=== PATIENT | male | born 1950 | race American Indian/Alaskan Native ===

== ENCOUNTER 2017-06-04 07:28 | Inpatient (IN) | payer MEDICARE, MEDICAID ==
[2017-05-31 17:20] VITALS: BMI 30.5
[2017-06-04] MEDS ORDERED: Promethazine/Cod 6.25mg-10mg/5ml Syr UD PO PRN (11:36)
[2017-06-04] MEDS: Oxycodone/Acetaminophen 5/325 mg Tab PO PRN (14:27)
[2017-06-04] MEDS: Ammonium Lactate 12% Lotion (225 g) TOP SCH ×3 (14:28→22:19)
--- NOTE | 2017-06-04 14:33 | CP.PCM.CON ---
History of Present Illness - History of Present Illness History of Present Illness: 67 y/o AA man transferred for cervical stenosis surgery. Cervical spine disease severe and neuro surgery recommended. Has refused surgery for about 2 years HAD SYNCOPIZED 2 X PRIOR TO ADMISSION TO [facility] Last dialysis 06/03 PMH: ESRD- ON DIALYSIS 8-9 YEARS HTN HTN RENAL DISEASE ATRIAL ARRYTHMIAS SEC HYPERPARATHYROIDISM PSH: AV FISTULA PPM Review of Systems - Constitutional Constitutional: Fatigue, Lethargy, Weakness - EENT Eyes: absent: As Per HPI, Blind Spots, Blurred Vision, Change in Vision, Decreased Night Vision, Diplopia, Discharge, Dry Eye, Exophthalmos, Floaters, Irritation, Itchy Eyes, Loss of Peripheral Vision, Pain, Photophobia, Requires Corrective Lenses, Sees Flashes, Spots in Vision, Tunnel Vision, Other Visual Disturbances, Loss of Vision, Other Ears: absent: As Per HPI, Decreased Hearing, Ear Discharge, Ear Pain, Tinnitus, Abnormal Hearing, Disequilibrium, Dizziness, Other Nose/Mouth/Throat: absent: As Per HPI, Epistaxis, Nasal Congestion, Nasal Discharge, Nasal Obstruction, Nasal Trauma, Nose Pain, Post Nasal Drip, Sinus Pain, Sinus Pressure, Bleeding Gums, Change in Voice, Dental Pain, Dry Mouth, Dysphagia, Halitosis, Hoarsness, Lip Swelling, Mouth Lesions, Mouth Pain, Odynophagia, Sore Throat, Throat Swelling, Tongue Swelling, Facial Pain, Neck Pain, Neck Mass, Other - Cardiovascular Cardiovascular: Dyspnea on Exertion, Leg Edema, Lightheadedness - Respiratory Respiratory: Cough, Dyspnea on Exertion - Gastrointestinal Gastrointestinal: absent: As Per HPI, Abdominal Pain, Belching, Bloating, Change in Bowel Habits, Change in Stool Character, Coffee Ground Emesis, Constipation, Cramping, Diarrhea, Dyspepsia, Dysphagia, Early Satiety, Excessive Flatus, Fecal Incontinence, Heartburn, Hematemesis, Hematochezia, Loose Stools, Melena, Nausea, Odynophagia, Temesmus, Vomiting, Other - Genitourinary Genitourinary: As Per HPI - Musculoskeletal Musculoskeletal: Abnormal Gait, Muscle Weakness, Myalgias, Radiating Pain into Limb - Integumentary Integumentary: Dry Skin - Neurological Neurological: Sensory Deficit, Weakness Past Patient History - Infectious Disease Hx of Infectious Diseases: None - Past Medical History & Family History Past Medical History?: Yes Past Family History: Reviewed and not pertinent - Past Social History Smoking Status: Former Smoker Chewing Tobacco Use: No Cigar Use: No Alcohol: None 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 - NEUROLOGICAL Hx Neurological Disorder: Yes Hx Syncope: Yes Other/Comment: COMATOSE 1 MONTH 2008 DUE TO RENAL FAILURE - HEENT Hx HEENT Problems: No - RENAL Hx Chronic Kidney Disease: Yes Hx Dialysis: Yes - ENDOCRINE/METABOLIC Hx Endocrine Disorders: No - HEMATOLOGICAL/ONCOLOGICAL Hx Blood Disorders: Yes Hx AIDS: No Hx Anemia: Yes Hx Human Immunodeficiency Virus (HIV): No - INTEGUMENTARY Hx Dermatological Problems: Yes Other/Comment: CHRONIC PRURITUS - MUSCULOSKELETAL/RHEUMATOLOGICAL Hx Musculoskeletal Disorders: No Hx Falls: Yes - GASTROINTESTINAL Hx Gastrointestinal Disorders: Yes Other/Comment: ABD HERNIA HISTORY FEEDING TUBE INSERTION AND REMOVAL - GENITOURINARY/GYNECOLOGICAL Hx Genitourinary Disorders: No - PSYCHIATRIC Hx Psychophysiologic Disorder: No Hx Substance Use: No - SURGICAL HISTORY Hx Surgeries: Yes Hx Tonsillectomy: Yes Hx Vascular Access Device: Yes - ANESTHESIA Hx Anesthesia: Yes Hx Anesthesia Reactions: No Hx Malignant Hyperthermia: No Meds Allergies/Adverse Reactions: Allergies Allergy/AdvReac Type Severity Reaction Status Date / Time олег inhibitors Allergy Mild ANAPHYLAXIS Uncoded 05/31/17 17:22 - Medications Medications: Current Medications Albuterol/Ipratropium (Duoneb 3 Mg/0.5 Mg (3 Ml) Ud) 3 ml INH RQ6 PRN PRN Reason: Shortness of Breath Amiodarone HCl (Cordarone) 100 mg PO DAILY [facility] Last Admin: 06/04/17 12:28 Dose: 100 mg Amlodipine Besylate (Norvasc) 5 mg PO DAILY [facility] Epoetin Leroy (Procrit) 4,000 unit SC TTS [facility] Heparin Sodium (Porcine) (Heparin) 5,000 units SC Q12 [facility] Lactic Acid (Lac-Hydrin 12% Lotion (225 G)) 1 gm TOP QID [facility] Last Admin: 06/04/17 14:28 Dose: 1 applic Losartan Potassium (Cozaar) 50 mg PO DAILY [facility] Last Admin: 06/04/17 12:28 Dose: 50 mg Oxycodone/Acetaminophen (Percocet 5/325 Mg Tab) 1 tab PO Q6H PRN PRN Reason: Pain, moderate (4-7) Stop: 06/07/17 14:16 Last Admin: 06/04/17 14:27 Dose: 1 tab Promethazine HCl/Codeine (Phenergan/Codeine Oral Syrup) 5 ml PO Q6 PRN PRN Reason: Cough Sevelamer Carbonate (Renvela) 2,400 mg PO TID [facility] Last Admin: 06/04/17 14:28 Dose: 2,400 mg Tramadol HCl (Ultram) 50 mg PO Q6 PRN PRN Reason: Pain, moderate (4-7) Vancomycin HCl (Vancocin (Oral Or Rectal Use)) 500 mg PO TTS [facility] Vitamin B Complex/Vit C/Folic Acid (Nephro-Macho) 1 tab PO DAILY [facility] Physical Exam - Constitutional Appears: Confused, Chronically Ill - Head Exam Head Exam: ATRAUMATIC, NORMAL INSPECTION - Eye Exam Eye Exam: EOMI, Normal appearance - Neck Exam Neck exam: Positive for: Normal Inspection, Tenderness - Respiratory Exam Respiratory Exam: Clear to Auscultation Bilateral, NORMAL BREATHING PATTERN - Cardiovascular Exam Cardiovascular Exam: REGULAR RHYTHM, +S1 - GI/Abdominal Exam GI & Abdominal Exam: Soft. absent: Tenderness - Extremities Exam Extremities exam: Positive for: pedal edema, tenderness - Neurological Exam Neurological exam: Alert, Motor Sensory Deficit - Psychiatric Exam Psychiatric exam: Depressed, Flat Affect - Skin Skin Exam: Dry, Warm Results - Vital Signs Recent Vital Signs: Last Vital Signs Temp 97.6 F 06/04/17 08:15 Pulse 60 06/04/17 08:15 Resp 20 06/04/17 08:15 BP 131/66 06/04/17 08:15 Pulse Ox 94 L 06/04/17 08:15 Assessment & Plan (1) Cervical myelopathy Status: Acute (2) ESRD (end stage renal disease) Status: Acute (3) Hypertensive chronic kidney disease with stage 5 chronic kidney disease or end stage renal disease Status: Acute - Assessment and Plan (Free Text) Plan: Check labs Dialysis TTS Neurosurgery evaluation and treament
[2017-06-04] MEDS: Albuterol-Ipratrop 3 mg / 0.5 (3 ml) UD INH PRN (18:28)
--- NOTE | 2017-06-05 00:47 | CP.PCM.HP ---
History of Present Illness - History of Present Illness History of Present Illness: Chief complaint: Numbness and weakness of the hand and the legs History present illness: 67-year-old male with history of end-stage renal disease on dialysis, diabetes, hypertension on dialysis for more than 10 years was transferred from [facility] for management of and surgical intervention of the cervical neck disease. Patient went to the [facility] following a fall, and had injury to the neck at the time. Patient claims that 9 months ago he was hospitalized, and since then he is not doing well. He was in the rehabilitation, and slowly his walking capacity is reduced. He is mostly sitting up in the chair. He was able to use his hands before, after the recent hospitalization at [place] , he started having less movement in the upper and the lower extremities. He also admitted at the time with coughing, shortness of breath, and the suspected aspiration pneumonia and the placed on antibiotic. The PMD called me, from [facility], and he was diagnosed with the impending cord compression, and the patient needed surgical intervention, but patient only wanted to have the surgery at [facility]. 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 Patient was transferred for that reason. Patient is sitting up in the chair, compatible otherwise. He is having numbness and tingling in the hands, He is able to use the right hand but not like before. Patient was seen by neurosurgical team, and was told that a shunt is at high risk for surgical intervention. Past medical history as noted above Allergy: No known drug allergy except DOMNIIQUE inhibitor was, patient claims that it cost itching and rash and shortness of breath Surgical intervention: Pacemaker, AV shunt. Abdominal surgery Patient denies any smoking, no alcohol. Patient is living by himself. Currently from correction Review of system: Currently having no headache, minimal cough noted, no abdominal pain, having BMs regularly. Patient is able to lift the legs both sides. He is also able to move the upper extremities. He is feeling much better than before. Still having some neck pain Vital signs reviewed No neck vein distention noted, deformity of the neck noted flexion contracture present Chest good air entry bilaterally, no wheezing or rales noted CVS regular heart sound, no murmur noted Abdomen soft, nontender. 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 Reduced reflexes in the upper extremities. Weakness of the upper extend to noted and also contractures noted Labs reviewed CT of the neck reviewed Assessment and recommendation: 67-year-old male with multiple medical history including end-stage renal disease on dialysis diabetes hypertension hypercholesterolemia, possible heart disease, pacemaker. Patient is currently having multiple cervical [place] disease associated with the spondylosis, and a causing possible compression. Patient is at high risk. He himself is afraid of the surgery at this time. We will get the cardiology evaluation. We'll speak to the surgery. 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 - NEUROLOGICAL Hx Neurological Disorder: Yes Hx Syncope: Yes Other/Comment: COMATOSE 1 MONTH 2008 DUE TO RENAL FAILURE - HEENT Hx HEENT Problems: No - RENAL Hx Chronic Kidney Disease: Yes Hx Dialysis: Yes - ENDOCRINE/METABOLIC Hx Endocrine Disorders: No - HEMATOLOGICAL/ONCOLOGICAL Hx Blood Disorders: Yes Hx AIDS: No Hx Anemia: Yes Hx Human Immunodeficiency Virus (HIV): No - INTEGUMENTARY Hx Dermatological Problems: Yes Other/Comment: CHRONIC PRURITUS - MUSCULOSKELETAL/RHEUMATOLOGICAL Hx Musculoskeletal Disorders: No Hx Falls: Yes - GASTROINTESTINAL Hx Gastrointestinal Disorders: Yes Other/Comment: ABD HERNIA HISTORY FEEDING TUBE INSERTION AND REMOVAL - GENITOURINARY/GYNECOLOGICAL Hx Genitourinary Disorders: No - PSYCHIATRIC Hx Psychophysiologic Disorder: No Hx Substance Use: No - SURGICAL HISTORY Hx Surgeries: Yes Hx Tonsillectomy: Yes Hx Vascular Access Device: Yes - ANESTHESIA Hx Anesthesia: Yes Hx Anesthesia Reactions: No Hx Malignant Hyperthermia: No Meds Allergies/Adverse Reactions: Allergies Allergy/AdvReac Type Severity Reaction Status Date / Time dominique inhibitors Allergy Mild ANAPHYLAXIS Uncoded 05/31/17 17:22 Results - Vital Signs Recent Vital Signs: Last Vital Signs Temp 97 F L 06/04/17 15:05 Pulse 98 H 06/04/17 18:32 Resp 20 06/04/17 15:05 BP 123/77 06/04/17 15:05 Pulse Ox 95 06/04/17 15:05 - Labs Result Diagrams: 06/05/17 10:33 06/05/17 10:07
[2017-06-05] MEDS: Oxycodone/Acetaminophen 5/325 mg Tab PO PRN ×3 (01:18→18:20)
[2017-06-05] MEDS: Albuterol-Ipratrop 3 mg / 0.5 (3 ml) UD INH PRN ×2 (01:32→18:50)
--- NOTE | 2017-06-05 08:26 | CP.PCM.PN ---
Subjective - Date & Time of Evaluation Date of Evaluation: 06/05/17 Time of Evaluation: 08:24 - Subjective Subjective: full consult dictatted by 3 days ago while at [facility] referance that He is extremly high risk for this surgery, high probability of either not surviving or quadraplegica will await med clearance and discuss again with pt if med cleared Objective - Vital Signs/Intake and Output Vital Signs (last 24 hours): Temp Pulse Resp BP Pulse Ox 98.5 F 61 20 96/59 L 96 06/04/17 23:00 06/05/17 00:00 06/04/17 23:00 06/04/17 23:00 06/04/17 23:00 Intake and Output: 06/05/17 06/05/17 06:59 18:59 Intake Total 20 Balance 20 - Medications Medications: Current Medications Albuterol/Ipratropium (Duoneb 3 Mg/0.5 Mg (3 Ml) Ud) 3 ml INH RQ6 PRN PRN Reason: Shortness of Breath Last Admin: 06/05/17 01:32 Dose: 3 ml Amiodarone HCl (Cordarone) 100 mg PO DAILY [facility] Last Admin: 06/04/17 12:28 Dose: 100 mg Amlodipine Besylate (Norvasc) 5 mg PO DAILY [facility] Epoetin Leroy (Procrit) 4,000 unit SC TTS [facility] Heparin Sodium (Porcine) (Heparin) 5,000 units SC Q12 [facility] Last Admin: 06/04/17 22:23 Dose: Not Given Lactic Acid (Lac-Hydrin 12% Lotion (225 G)) 1 gm TOP QID [facility] Last Admin: 06/04/17 22:19 Dose: Not Given Losartan Potassium (Cozaar) 50 mg PO DAILY [facility] Last Admin: 06/04/17 12:28 Dose: 50 mg Oxycodone/Acetaminophen (Percocet 5/325 Mg Tab) 1 tab PO Q6H PRN PRN Reason: Pain, moderate (4-7) Stop: 06/07/17 14:16 Last Admin: 06/05/17 01:18 Dose: 1 tab Promethazine HCl/Codeine (Phenergan/Codeine Oral Syrup) 5 ml PO Q6 PRN PRN Reason: Cough Sevelamer Carbonate (Renvela) 2,400 mg PO TID [facility] Last Admin: 06/04/17 18:00 Dose: Not Given Tramadol HCl (Ultram) 50 mg PO Q6 PRN PRN Reason: Pain, moderate (4-7) Vancomycin HCl (Vancocin (Oral Or Rectal Use)) 500 mg PO TTS [facility] Vitamin B Complex/Vit C/Folic Acid (Nephro-Macho) 1 tab PO DAILY [facility]
--- NOTE | 2017-06-05 09:49 | CP.PCM.PN ---
Subjective - Date & Time of Evaluation Date of Evaluation: 06/05/17 Time of Evaluation: 09:46 - Subjective Subjective: For dialysis now- UF 2000ml Labs requested Reviewed neurosurgery note Will discuss with medicine Resume previous meds Objective - Vital Signs/Intake and Output Vital Signs (last 24 hours): Temp Pulse Resp BP Pulse Ox 97.7 F 69 20 99/58 L 98 06/05/17 07:53 06/05/17 07:53 06/05/17 07:53 06/05/17 07:53 06/05/17 07:53 Intake and Output: 06/05/17 06/05/17 06:59 18:59 Intake Total 20 Balance 20 - Medications Medications: Current Medications Albuterol/Ipratropium (Duoneb 3 Mg/0.5 Mg (3 Ml) Ud) 3 ml INH RQ6 PRN PRN Reason: Shortness of Breath Last Admin: 06/05/17 01:32 Dose: 3 ml Amiodarone HCl (Cordarone) 100 mg PO DAILY [facility] Last Admin: 06/04/17 12:28 Dose: 100 mg Amlodipine Besylate (Norvasc) 5 mg PO DAILY [facility] Epoetin Leroy (Procrit) 4,000 unit SC TTS [facility] Heparin Sodium (Porcine) (Heparin) 5,000 units SC Q12 [facility] Last Admin: 06/04/17 22:23 Dose: Not Given Lactic Acid (Lac-Hydrin 12% Lotion (225 G)) 1 gm TOP QID [facility] Last Admin: 06/04/17 22:19 Dose: Not Given Losartan Potassium (Cozaar) 50 mg PO DAILY [facility] Last Admin: 06/04/17 12:28 Dose: 50 mg Oxycodone/Acetaminophen (Percocet 5/325 Mg Tab) 1 tab PO Q6H PRN PRN Reason: Pain, moderate (4-7) Stop: 06/07/17 14:16 Last Admin: 06/05/17 01:18 Dose: 1 tab Promethazine HCl/Codeine (Phenergan/Codeine Oral Syrup) 5 ml PO Q6 PRN PRN Reason: Cough Sevelamer Carbonate (Renvela) 2,400 mg PO TID [facility] Last Admin: 06/04/17 18:00 Dose: Not Given Tramadol HCl (Ultram) 50 mg PO Q6 PRN PRN Reason: Pain, moderate (4-7) Vancomycin HCl (Vancocin (Oral Or Rectal Use)) 500 mg PO TTS [facility] Vitamin B Complex/Vit C/Folic Acid (Nephro-Macho) 1 tab PO DAILY [facility] - Constitutional Appears: No Acute Distress, Chronically Ill - Head Exam Head Exam: ATRAUMATIC, NORMAL INSPECTION - Eye Exam Eye Exam: EOMI, Normal appearance - Neck Exam Neck Exam: Normal Inspection, Tenderness - Respiratory Exam Respiratory Exam: Clear to Ausculation Bilateral, NORMAL BREATHING PATTERN - Cardiovascular Exam Cardiovascular Exam: REGULAR RHYTHM, +S1 - GI/Abdominal Exam GI & Abdominal Exam: Soft. absent: Tenderness - Extremities Exam Extremities Exam: Normal Inspection. absent: Tenderness - Neurological Exam Neurological Exam: Awake, CN II-XII Intact - Skin Skin Exam: Dry, Warm Assessment and Plan (1) Cervical myelopathy Status: Acute (2) ESRD (end stage renal disease) Status: Acute (3) Hypertensive chronic kidney disease with stage 5 chronic kidney disease or end stage renal disease Status: Acute - Assessment and Plan (Free Text) Plan: Dialysis now and TTS Request labs Discuss high risk of surgery with patient and staff
[2017-06-05] MEDS ORDERED: Vancomycin 125 MG/5 ML SOLN (ORAL/RECTAL) PO SCH ×2 (10:00)
[2017-06-05] MEDS: Ammonium Lactate 12% Lotion (225 g) TOP SCH ×4 (10:09→21:41)
[2017-06-05] MEDS: Multivitamin Vitamin B Complex (Nephro-Vite) Tab PO SCH (10:10)
--- NOTE | 2017-06-05 10:18 | CP.PCM.CON ---
History of Present Illness - History of Present Illness History of Present Illness: Patient is a gentleman with history of hypertension, no history of diabetes, History of smoking cigars and no significant alcohol use.. Patient has no known coronary artery disease. A nuclear stress test 09/13 was normal, LV EF normal. Echo 09/13 revelaed normal LV EF, moderte pulmonary HTN, moderate sized pleural effusion. Patient has chronic renal failure and has been on hemodialysis for several years. Patient had a dual chamber pacemaker placed from the left side in 2008 because of complete atrioventricular block. Subsequently patient developed atrial flutter for which he underwent ablation in 2011 and 2012. Due to High thresholds, Patient had a [place] vDD Pacemaker placed from the right side in 2012 and the left-sided pacemaker was explanted. The ppm was last checked 03/14/2017. Patient was electrically cardioverted in 2013 and had been on amiodarone for several years. Patient was admitted to [facility] in December of 2016. He developed severe cervical spinal problems and has been in wheelchair. He had a CT of the chest which showed a nodule in the lungs suspicious for malignancy. Patient did not want any workup for that. Patient again does not want any consideration for defibrillator The pt reportedly has had two episodes of syncope. He was at [facility]. Denies chest pain or dyspnea. Review of Systems - Review of Systems All systems: reviewed and no additional remarkable complaints except (as above.) Past Patient History - Infectious Disease Hx of Infectious Diseases: None - Past Medical History & Family History Past Medical History?: Yes Past Family History: Reviewed and not pertinent - Past Social History Smoking Status: Former Smoker Chewing Tobacco Use: No Cigar Use: No Alcohol: None Home Situation {Lives}: Alone, [facility] - CARDIAC Hx Cardiac Disorders: Yes Hx Atrial Fibrillation: Yes Hx Cardia Arrhythmia: Yes Hx Congestive Heart Failure: Yes Hx Hypertension: Yes Hx Pacemaker: Yes Hx Peripheral Edema: Yes - PULMONARY Hx Respiratory Disorders: Yes Other/Comment: Pulmonaru Nodule. - NEUROLOGICAL Hx Neurological Disorder: Yes Hx Syncope: Yes Other/Comment: COMATOSE 1 MONTH 2008 DUE TO RENAL FAILURE - HEENT Hx HEENT Problems: No - RENAL Hx Chronic Kidney Disease: Yes Hx Dialysis: Yes - ENDOCRINE/METABOLIC Hx Endocrine Disorders: No - HEMATOLOGICAL/ONCOLOGICAL Hx Blood Disorders: Yes Hx AIDS: No Hx Anemia: Yes Hx Human Immunodeficiency Virus (HIV): No - INTEGUMENTARY Hx Dermatological Problems: Yes Other/Comment: CHRONIC PRURITUS - MUSCULOSKELETAL/RHEUMATOLOGICAL Hx Musculoskeletal Disorders: No Hx Falls: Yes - GASTROINTESTINAL Hx Gastrointestinal Disorders: Yes Other/Comment: ABD HERNIA HISTORY FEEDING TUBE INSERTION AND REMOVAL - GENITOURINARY/GYNECOLOGICAL Hx Genitourinary Disorders: No - PSYCHIATRIC Hx Psychophysiologic Disorder: No Hx Substance Use: No - SURGICAL HISTORY Hx Surgeries: Yes Hx Tonsillectomy: Yes Hx Vascular Access Device: Yes - ANESTHESIA Hx Anesthesia: Yes Hx Anesthesia Reactions: No Hx Malignant Hyperthermia: No Meds Allergies/Adverse Reactions: Allergies Allergy/AdvReac Type Severity Reaction Status Date / Time олег inhibitors Allergy Mild ANAPHYLAXIS Uncoded 05/31/17 17:22 - Medications Medications: Current Medications Albuterol/Ipratropium (Duoneb 3 Mg/0.5 Mg (3 Ml) Ud) 3 ml INH RQ6 PRN PRN Reason: Shortness of Breath Last Admin: 06/05/17 01:32 Dose: 3 ml Amiodarone HCl (Cordarone) 100 mg PO DAILY [facility] Last Admin: 06/04/17 12:28 Dose: 100 mg Amlodipine Besylate (Norvasc) 5 mg PO DAILY [facility] Epoetin Leroy (Procrit) 4,000 unit SC TTS [facility] Heparin Sodium (Porcine) (Heparin) 5,000 units SC Q12 [facility] Last Admin: 06/04/17 22:23 Dose: Not Given Lactic Acid (Lac-Hydrin 12% Lotion (225 G)) 1 gm TOP QID [facility] Last Admin: 06/04/17 22:19 Dose: Not Given Losartan Potassium (Cozaar) 50 mg PO DAILY [facility] Last Admin: 06/04/17 12:28 Dose: 50 mg Oxycodone/Acetaminophen (Percocet 5/325 Mg Tab) 1 tab PO Q6H PRN PRN Reason: Pain, moderate (4-7) Stop: 06/07/17 14:16 Last Admin: 06/05/17 01:18 Dose: 1 tab Promethazine HCl/Codeine (Phenergan/Codeine Oral Syrup) 5 ml PO Q6 PRN PRN Reason: Cough Sevelamer Carbonate (Renvela) 2,400 mg PO TID [facility] Last Admin: 06/04/17 18:00 Dose: Not Given Tramadol HCl (Ultram) 50 mg PO Q6 PRN PRN Reason: Pain, moderate (4-7) Vancomycin HCl (Vancocin (Oral Or Rectal Use)) 500 mg PO TTS [facility] Vitamin B Complex/Vit C/Folic Acid (Nephro-Macho) 1 tab PO DAILY [facility] Physical Exam - Constitutional Appears: Chronically Ill - Head Exam Head Exam: ATRAUMATIC - Eye Exam Eye Exam: EOMI - ENT Exam ENT Exam: Mucous Membranes Moist - Neck Exam Neck exam: Positive for: Full Rom - Respiratory Exam Respiratory Exam: Clear to Auscultation Bilateral - Cardiovascular Exam Cardiovascular Exam: Irregular Rhythm - GI/Abdominal Exam GI & Abdominal Exam: Normal Bowel Sounds - Rectal Exam Rectal Exam: Black Stool - Back Exam Back exam: NORMAL INSPECTION - Neurological Exam Neurological exam: Alert, Oriented x3 - Psychiatric Exam Psychiatric exam: Normal Affect - Skin Skin Exam: Normal Color - Additional Findings Additional findings: Pt has limited mobility and limited ROM of his neck. Results - Vital Signs Recent Vital Signs: Last Vital Signs Temp 97.7 F 06/05/17 07:53 Pulse 69 06/05/17 07:53 Resp 20 06/05/17 07:53 BP 99/58 L 06/05/17 07:53 Pulse Ox 98 06/05/17 07:53 - EKG Data EKG Interpreted by: Myself (elemetry only: atrial fibrillation.) Assessment & Plan - Assessment and Plan (Free Text) Assessment: 1. The patient has no know CAD. Normal LV EF. 2. Moderate pulmonary HTN is noted on echo. 3. Pt has had episodic afib, last was in [facility]sr 03/15: PPM functioning well. Pt is apparently in atrial fib today. ECG ois ordered. As afib has been episodic based on interrogation of ppm, will continue amiodarone in the jesse-operative period now as pt may convert back to nsr. If he does not, I will likely change amio to beta stefano. 4. As LV ef is normal and BP low. stop losartan.l 5. Pt has refused anticoagulation. Accepts only asa. off asa pending surgery. 6. Pt is cleared for neurosurgery on his spine.
[2017-06-05 10:36] LABS: ALB/GLOB RATIO 0.8 (1.0-2.1); ALKALINE PHOSPHATASE 99 U/L (38-126); ALT/SGPT 23 U/L (21-72); AST/SGOT 34 U/L (17-59); BILIRUBIN,TOTAL 0.5 mg/dL (0.2-1.3); BLOOD UREA NITROGEN 30 mg/dL (9-20); CALCIUM 8.8 mg/dl (8.6-10.4); CARBON DIOXIDE 27 mmol/L (22-30); CHLORIDE 93 mmol/L (98-107); GFR AFRICAN-AMERICAN 9; GLUCOSE,RANDOM 76 mg/dL (75-110); PHOSPHOROUS 4.9 mg/dL (2.5-4.5); POTASSIUM 4.1 mmol/L (3.6-5.2); SODIUM 134 mmol/L (132-148); TOTAL PROTEIN 7.5 g/dL (6.3-8.3)
[2017-06-05 10:43] LABS: BASO % 1.3 % (0.0-2.0); EOS # 0.1 K/uL (0.0-0.7); EOS % 3.9 % (0.0-4.0); HEMATOCRIT 28.8 % (35.0-51.0); LYMPH # 0.4 K/uL (1.0-4.3); LYMPH % 12.7 % (20.0-40.0); MEAN CELL VOLUME 98.9 fL (80.0-94.0); MEAN CORPUSCULAR HEMOGLOBIN 32.5 pg (27.0-31.0); MEAN CORPUSCULAR HGB CONC 32.9 g/dL (33.0-37.0); MEAN PLATELET VOLUME 7.7 fL (7.2-11.7); MONO # 0.4 K/uL (0.0-0.8); RED CELL DISTRIBUTION WIDTH 16.7 % (11.5-14.5)
[2017-06-05] MEDS: EPOETIN ALFA 4,000 UNIT/ML ML Dialysis SC SCH (11:05)
--- NOTE | 2017-06-05 19:08 | CP.PCM.PN ---
Subjective - Date & Time of Evaluation Date of Evaluation: 06/05/17 Time of Evaluation: 19:06 - Subjective Subjective: Patient received hemodialysis today. History feeling hungry. Nothing by mouth at this time. I spoke to the surgeon today. 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 Patient is having baseline shortness of breath. Cough noted. Also CAT scan of the chest recently showing evidence of aspiration pneumonitis. Vital signs otherwise stable. Patient is not able to lie flat, he is having significant shortness of breath upon lying flat, also having severe neck pain. After discussion with the surgeon, the patient is at high risk for any surgical intervention at this time. The surgery itself is a long procedure, multiple intervention needed during the surgery, he is at high risk for worsening respiratory failure, paralysis, and multiple other complications. Even the cardiology oneil stable, patient is at high risk for respiratory events. We'll discuss with the patient. Surgeon will speak to the patient tomorrow. Further management after discussion tomorrow. Objective - Vital Signs/Intake and Output Vital Signs (last 24 hours): Temp Pulse Resp BP Pulse Ox 98.2 F 51 L 20 125/73 98 06/05/17 16:08 06/05/17 16:08 06/05/17 16:08 06/05/17 16:08 06/05/17 16:08 - Medications Medications: Current Medications Albuterol/Ipratropium (Duoneb 3 Mg/0.5 Mg (3 Ml) Ud) 3 ml INH RQ6 PRN PRN Reason: Shortness of Breath Last Admin: 06/05/17 18:50 Dose: 3 ml Amiodarone HCl (Cordarone) 100 mg PO DAILY [facility] Last Admin: 06/05/17 10:09 Dose: Not Given Amlodipine Besylate (Norvasc) 5 mg PO DAILY [facility] Last Admin: 06/05/17 10:10 Dose: Not Given Epoetin Leroy (Procrit) 4,000 unit SC TTS [facility] Last Admin: 06/05/17 11:05 Dose: 4,000 unit Heparin Sodium (Porcine) (Heparin) 5,000 units SC Q12 [facility] Last Admin: 06/05/17 10:09 Dose: Not Given Lactic Acid (Lac-Hydrin 12% Lotion (225 G)) 1 gm TOP QID [facility] Last Admin: 06/05/17 18:23 Dose: 1 applic Oxycodone/Acetaminophen (Percocet 5/325 Mg Tab) 1 tab PO Q6H PRN PRN Reason: Pain, moderate (4-7) Stop: 06/07/17 14:16 Last Admin: 06/05/17 18:20 Dose: 1 tab Promethazine HCl/Codeine (Phenergan/Codeine Oral Syrup) 5 ml PO Q6 PRN PRN Reason: Cough Sevelamer Carbonate (Renvela) 2,400 mg PO TID [facility] Last Admin: 06/05/17 18:21 Dose: 2,400 mg Tramadol HCl (Ultram) 50 mg PO Q6 PRN PRN Reason: Pain, moderate (4-7) Vancomycin HCl (Vancocin (Oral Or Rectal Use)) 500 mg PO TTS [facility] Vitamin B Complex/Vit C/Folic Acid (Nephro-Macho) 1 tab PO DAILY [facility] Last Admin: 06/05/17 10:10 Dose: Not Given - Labs Labs: 06/05/17 10:33 06/05/17 10:07
[2017-06-06] MEDS: Oxycodone/Acetaminophen 5/325 mg Tab PO PRN ×4 (00:34→23:09)
[2017-06-06] MEDS: Albuterol-Ipratrop 3 mg / 0.5 (3 ml) UD INH PRN ×3 (07:12→19:18)
[2017-06-06] MEDS: Multivitamin Vitamin B Complex (Nephro-Vite) Tab PO SCH (09:13)
[2017-06-06] MEDS: Ammonium Lactate 12% Lotion (225 g) TOP SCH ×4 (09:15→22:06)
--- NOTE | 2017-06-06 12:02 | CP.PCM.PN ---
Subjective - Date & Time of Evaluation Date of Evaluation: 06/06/17 Time of Evaluation: 11:57 - Subjective Subjective: SPINE Pt OOB in chair. States he amb w PT. Feeling better than a few days ago. Had another discussion w pt re:surgery and risks involved. I feel if surgery were to be done it would be best in [facility] setting, given the extensive nature of the operation as well as his co-morbidities. Mr. Kirk states at this time he does not want anything done as he can get around and "I still have my brain." However, he did give me permission to make copies of his radiographic studies to get opinions from other spine surgeon(s) who may be able to treat Mr. Kirk should he want/need the surgery done. Thanks for allowing me to participate in the care of your patient. Objective - Vital Signs/Intake and Output Vital Signs (last 24 hours): Temp Pulse Resp BP Pulse Ox 99.0 F 74 20 114/73 97 06/06/17 08:36 06/06/17 08:36 06/06/17 08:36 06/06/17 08:36 06/06/17 08:36 - Medications Medications: Current Medications Albuterol/Ipratropium (Duoneb 3 Mg/0.5 Mg (3 Ml) Ud) 3 ml INH RQ6 PRN PRN Reason: Shortness of Breath Last Admin: 06/06/17 07:12 Dose: 3 ml Amiodarone HCl (Cordarone) 100 mg PO DAILY [facility] Last Admin: 06/06/17 09:14 Dose: 100 mg Amlodipine Besylate (Norvasc) 5 mg PO DAILY [facility] Last Admin: 06/06/17 09:13 Dose: 5 mg Epoetin Leroy (Procrit) 4,000 unit SC TTS [facility] Last Admin: 06/05/17 11:05 Dose: 4,000 unit Heparin Sodium (Porcine) (Heparin) 5,000 units SC Q12 [facility] Last Admin: 06/06/17 09:13 Dose: 5,000 units Lactic Acid (Lac-Hydrin 12% Lotion (225 G)) 1 gm TOP QID [facility] Last Admin: 06/06/17 09:15 Dose: 1 applic Oxycodone/Acetaminophen (Percocet 5/325 Mg Tab) 1 tab PO Q6H PRN PRN Reason: Pain, moderate (4-7) Stop: 06/07/17 14:16 Last Admin: 06/06/17 10:46 Dose: 1 tab Promethazine HCl/Codeine (Phenergan/Codeine Oral Syrup) 5 ml PO Q6 PRN PRN Reason: Cough Last Admin: 06/05/17 21:45 Dose: 5 ml Sevelamer Carbonate (Renvela) 2,400 mg PO TID [facility] Last Admin: 06/06/17 09:15 Dose: Not Given Tramadol HCl (Ultram) 50 mg PO Q6 PRN PRN Reason: Pain, moderate (4-7) Vitamin B Complex/Vit C/Folic Acid (Nephro-Macho) 1 tab PO DAILY [facility] Last Admin: 06/06/17 09:13 Dose: 1 tab - Labs Labs: 06/05/17 10:33 06/05/17 10:07
--- NOTE | 2017-06-06 16:52 | CP.PCM.PN ---
Subjective - Date & Time of Evaluation Date of Evaluation: 06/06/17 Time of Evaluation: 16:49 - Subjective Subjective: Appreciate notes; surgery on hold for now Feels same- severe neck pains and decreased ROM Stable dialysis 06/05 No fevers, chills, SOB, CPs Objective - Vital Signs/Intake and Output Vital Signs (last 24 hours): Temp Pulse Resp BP Pulse Ox 98.4 F 60 20 135/51 L 96 06/06/17 16:23 06/06/17 16:23 06/06/17 16:23 06/06/17 16:23 06/06/17 16:23 - Medications Medications: Current Medications Albuterol/Ipratropium (Duoneb 3 Mg/0.5 Mg (3 Ml) Ud) 3 ml INH RQ6 PRN PRN Reason: Shortness of Breath Last Admin: 06/06/17 13:23 Dose: 3 ml Amiodarone HCl (Cordarone) 100 mg PO DAILY [facility] Last Admin: 06/06/17 09:14 Dose: 100 mg Amlodipine Besylate (Norvasc) 5 mg PO DAILY [facility] Last Admin: 06/06/17 09:13 Dose: 5 mg Epoetin Leroy (Procrit) 4,000 unit SC TTS [facility] Last Admin: 06/05/17 11:05 Dose: 4,000 unit Heparin Sodium (Porcine) (Heparin) 5,000 units SC Q12 [facility] Last Admin: 06/06/17 09:13 Dose: 5,000 units Lactic Acid (Lac-Hydrin 12% Lotion (225 G)) 1 gm TOP QID [facility] Last Admin: 06/06/17 13:28 Dose: 1 applic Oxycodone/Acetaminophen (Percocet 5/325 Mg Tab) 1 tab PO Q6H PRN PRN Reason: Pain, moderate (4-7) Stop: 06/07/17 14:16 Last Admin: 06/06/17 10:46 Dose: 1 tab Promethazine HCl/Codeine (Phenergan/Codeine Oral Syrup) 5 ml PO Q6 PRN PRN Reason: Cough Last Admin: 06/05/17 21:45 Dose: 5 ml Sevelamer Carbonate (Renvela) 2,400 mg PO TID [facility] Last Admin: 06/06/17 13:28 Dose: 2,400 mg Tramadol HCl (Ultram) 50 mg PO Q6 PRN PRN Reason: Pain, moderate (4-7) Vitamin B Complex/Vit C/Folic Acid (Nephro-Macho) 1 tab PO DAILY [facility] Last Admin: 06/06/17 09:13 Dose: 1 tab - Labs Labs: 06/05/17 10:33 06/05/17 10:07 - Constitutional Appears: No Acute Distress, Chronically Ill - Head Exam Head Exam: ATRAUMATIC, NORMAL INSPECTION - Eye Exam Eye Exam: EOMI, Normal appearance - Neck Exam Neck Exam: Tenderness - Respiratory Exam Respiratory Exam: Clear to Ausculation Bilateral, NORMAL BREATHING PATTERN - Cardiovascular Exam Cardiovascular Exam: REGULAR RHYTHM, +S1 - GI/Abdominal Exam GI & Abdominal Exam: Soft. absent: Tenderness - Extremities Exam Extremities Exam: Pedal Edema. absent: Tenderness - Neurological Exam Neurological Exam: Alert, CN II-XII Intact - Skin Skin Exam: Dry, Warm Assessment and Plan (1) Cervical myelopathy Status: Acute (2) ESRD (end stage renal disease) Status: Acute (3) Hypertensive chronic kidney disease with stage 5 chronic kidney disease or end stage renal disease Status: Acute - Assessment and Plan (Free Text) Plan: Dialysis TTS Pain management Consider NH
--- NOTE | 2017-06-06 19:05 | CP.PCM.PN ---
Subjective - Date & Time of Evaluation Date of Evaluation: 06/06/17 Time of Evaluation: 18:59 - Subjective Subjective: Pt feels the same, neck pain. He was hypotensive in dialysis. Objective - Vital Signs/Intake and Output Vital Signs (last 24 hours): Temp Pulse Resp BP Pulse Ox 98.4 F 60 20 135/51 L 96 06/06/17 16:23 06/06/17 16:23 06/06/17 16:23 06/06/17 16:23 06/06/17 16:23 - Medications Medications: Current Medications Albuterol/Ipratropium (Duoneb 3 Mg/0.5 Mg (3 Ml) Ud) 3 ml INH RQ6 PRN PRN Reason: Shortness of Breath Last Admin: 06/06/17 13:23 Dose: 3 ml Amiodarone HCl (Cordarone) 100 mg PO DAILY [facility] Last Admin: 06/06/17 09:14 Dose: 100 mg Amlodipine Besylate (Norvasc) 5 mg PO DAILY [facility] Last Admin: 06/06/17 09:13 Dose: 5 mg Epoetin Leroy (Procrit) 4,000 unit SC TTS [facility] Last Admin: 06/05/17 11:05 Dose: 4,000 unit Heparin Sodium (Porcine) (Heparin) 5,000 units SC Q12 [facility] Last Admin: 06/06/17 09:13 Dose: 5,000 units Lactic Acid (Lac-Hydrin 12% Lotion (225 G)) 1 gm TOP QID [facility] Last Admin: 06/06/17 17:22 Dose: 1 applic Oxycodone/Acetaminophen (Percocet 5/325 Mg Tab) 1 tab PO Q6H PRN PRN Reason: Pain, moderate (4-7) Stop: 06/07/17 14:16 Last Admin: 06/06/17 17:10 Dose: 1 tab Promethazine HCl/Codeine (Phenergan/Codeine Oral Syrup) 5 ml PO Q6 PRN PRN Reason: Cough Last Admin: 06/05/17 21:45 Dose: 5 ml Sevelamer Carbonate (Renvela) 2,400 mg PO TID [facility] Last Admin: 06/06/17 17:11 Dose: 2,400 mg Tramadol HCl (Ultram) 50 mg PO Q6 PRN PRN Reason: Pain, moderate (4-7) Vitamin B Complex/Vit C/Folic Acid (Nephro-Macho) 1 tab PO DAILY [facility] Last Admin: 06/06/17 09:13 Dose: 1 tab - Labs Labs: 06/05/17 10:33 06/05/17 10:07 - Constitutional Appears: Chronically Ill - Head Exam Head Exam: ATRAUMATIC - Eye Exam Eye Exam: Normal appearance Pupil Exam: NORMAL ACCOMODATION - ENT Exam ENT Exam: Mucous Membranes Moist - Respiratory Exam Respiratory Exam: Clear to Ausculation Bilateral - Cardiovascular Exam Cardiovascular Exam: Irregular Rhythm - GI/Abdominal Exam GI & Abdominal Exam: Normal Bowel Sounds - Exam External exam: Swelling - Extremities Exam Extremities Exam: Joint Swelling - Neurological Exam Neurological Exam: Alert, Awake, Oriented x3 Assessment and Plan - Assessment and Plan (Free Text) Assessment: 1. Atrial fib: ECG is pending. Pt is off asa for pending surgery. On sq heparin. Pt has refused full anticoagulation in the past. he does not wish IV heparin now prior to surgery. I explained the risk of stroke and thromboembolism to him. He is satisfied with sq heparin, (not enough to prevent LA thrombus). 2. Continue amio for rate control now. Pt has been in and out of afib for years , only on asa. 3. LV ef is normal, non ischemic nuclear stress test. 4. For neurosurgery. Although pt is frail and on dialysis, and based on this fact alone, at increased risk of cardiovascular events, he is optimized for surgery. 5. Off losartan for hypotension.
[2017-06-07] MEDS ORDERED: Aluminum Hydroxide/Magnesium Hydroxide Susp (30 mL) PO ONE (00:42)
[2017-06-07] MEDS ORDERED: POLYETHYLENE GLYCOL 3350 17 GM/Dose PACKET PO ONE (00:49)
[2017-06-07] MEDS: Oxycodone/Acetaminophen 5/325 mg Tab PO PRN ×2 (06:19→13:33)
[2017-06-07] MEDS: Albuterol-Ipratrop 3 mg / 0.5 (3 ml) UD INH PRN ×2 (07:42→13:53)
[2017-06-07] MEDS: Ammonium Lactate 12% Lotion (225 g) TOP SCH ×4 (10:05→22:22)
[2017-06-07] MEDS: Multivitamin Vitamin B Complex (Nephro-Vite) Tab PO SCH (10:06)
[2017-06-07 10:55] LABS: BASO # 0.1 K/uL (0.0-0.2); BASO % 2.2 % (0.0-2.0); EOS # 0.3 K/uL (0.0-0.7); EOS % 10.1 % (0.0-4.0); LYMPH # 0.4 K/uL (1.0-4.3); MEAN CELL VOLUME 100.2 fL (80.0-94.0); MEAN CORPUSCULAR HEMOGLOBIN 32.5 pg (27.0-31.0); MEAN CORPUSCULAR HGB CONC 32.5 g/dL (33.0-37.0); MEAN PLATELET VOLUME 7.7 fL (7.2-11.7); MONO # 0.6 K/uL (0.0-0.8); MONO % 19.3 % (0.0-10.0); NRBC % 0.1 % (0.0-2.0); WHITE BLOOD COUNT 3.3 K/uL (4.8-10.8)
--- NOTE | 2017-06-07 10:59 | CP.PCM.PN ---
Subjective - Date & Time of Evaluation Date of Evaluation: 06/07/17 Time of Evaluation: 10:57 - Subjective Subjective: Seen in HD unit on dialysis Usual back discomfort No overnight events Considering surgery [id number] ROS negative other than back/neck pain Objective - Vital Signs/Intake and Output Vital Signs (last 24 hours): Temp Pulse Resp BP Pulse Ox 98.2 F 86 18 115/65 96 06/07/17 07:00 06/07/17 07:46 06/07/17 07:00 06/07/17 07:00 06/07/17 07:00 Intake and Output: 06/07/17 06/07/17 06:59 18:59 Intake Total 200 Balance 200 - Medications Medications: Current Medications Albuterol/Ipratropium (Duoneb 3 Mg/0.5 Mg (3 Ml) Ud) 3 ml INH RQ6 PRN PRN Reason: Shortness of Breath Last Admin: 06/07/17 07:42 Dose: 3 ml Amiodarone HCl (Cordarone) 100 mg PO DAILY [facility] Last Admin: 06/06/17 09:14 Dose: 100 mg Amlodipine Besylate (Norvasc) 5 mg PO DAILY [facility] Last Admin: 06/06/17 09:13 Dose: 5 mg Epoetin Leroy (Procrit) 4,000 unit SC TTS [facility] Last Admin: 06/05/17 11:05 Dose: 4,000 unit Heparin Sodium (Porcine) (Heparin) 5,000 units SC Q12 [facility] Last Admin: 06/07/17 10:05 Dose: Not Given Lactic Acid (Lac-Hydrin 12% Lotion (225 G)) 1 gm TOP QID [facility] Last Admin: 06/07/17 10:05 Dose: Not Given Oxycodone/Acetaminophen (Percocet 5/325 Mg Tab) 1 tab PO Q6H PRN PRN Reason: Pain, moderate (4-7) Stop: 06/07/17 14:16 Last Admin: 06/07/17 06:19 Dose: 1 tab Promethazine HCl/Codeine (Phenergan/Codeine Oral Syrup) 5 ml PO Q6 PRN PRN Reason: Cough Last Admin: 06/05/17 21:45 Dose: 5 ml Sevelamer Carbonate (Renvela) 2,400 mg PO TID [facility] Last Admin: 09/09/17 10:06 Dose: Not Given Tramadol HCl (Ultram) 50 mg PO Q6 PRN PRN Reason: Pain, moderate (4-7) Vitamin B Complex/Vit C/Folic Acid (Nephro-Macho) 1 tab PO DAILY [facility] Last Admin: 06/07/17 10:06 Dose: Not Given - Labs Labs: 06/07/17 10:50 06/05/17 10:07 - Constitutional Appears: Non-toxic, Chronically Ill - Head Exam Head Exam: ATRAUMATIC, NORMAL INSPECTION - ENT Exam ENT Exam: Mucous Membranes Moist - Respiratory Exam Respiratory Exam: Clear to Ausculation Bilateral. absent: Rhonchi, Wheezes - Cardiovascular Exam Cardiovascular Exam: +S1, +S2, Murmur - GI/Abdominal Exam GI & Abdominal Exam: Soft, Normal Bowel Sounds - Extremities Exam Extremities Exam: Pedal Edema. absent: Tenderness - Neurological Exam Neurological Exam: Alert, Awake - Skin Skin Exam: Dry, Intact Assessment and Plan (1) Cervical myelopathy Status: Acute (2) ESRD (end stage renal disease) Status: Acute (3) Hypertensive chronic kidney disease with stage 5 chronic kidney disease or end stage renal disease Status: Acute (4) Secondary hyperparathyroidism (of renal origin) Status: Acute - Assessment and Plan (Free Text) Assessment: Tolerating dialysis well UF goal 1500ml BP stable Continue current meds Await decision regarding surgery
[2017-06-07 11:03] LABS: POTASSIUM 3.7 mmol/L (3.6-5.2)
[2017-06-07 11:05] LABS: BILIRUBIN,TOTAL 0.6 mg/dL (0.2-1.3); TOTAL PROTEIN 7.9 g/dL (6.3-8.3)
[2017-06-07 11:06] LABS: CALCIUM 9.2 mg/dl (8.6-10.4)
[2017-06-07 11:07] LABS: ALB/GLOB RATIO 0.8 (1.0-2.1)
[2017-06-07] MEDS: EPOETIN ALFA 4,000 UNIT/ML ML Dialysis SC SCH (12:29)
[2017-06-08] MEDS: Multivitamin Vitamin B Complex (Nephro-Vite) Tab PO SCH (10:01)
[2017-06-08] MEDS: Ammonium Lactate 12% Lotion (225 g) TOP SCH ×4 (10:03→21:22)
[2017-06-09] MEDS: Multivitamin Vitamin B Complex (Nephro-Vite) Tab PO SCH (09:53)
[2017-06-09] MEDS: Ammonium Lactate 12% Lotion (225 g) TOP SCH ×3 (09:54→19:02)
--- NOTE | 2017-06-09 12:44 | CP.PCM.PN ---
Subjective - Date & Time of Evaluation Date of Evaluation: 06/09/17 Time of Evaluation: 12:42 - Subjective Subjective: refusing neck surgery for now feels better will need dialysis today prior to rehab transfer Objective - Vital Signs/Intake and Output Vital Signs (last 24 hours): Temp Pulse Resp BP Pulse Ox 97.3 F L 105 H 18 109/69 100 06/09/17 07:00 06/09/17 07:00 06/09/17 07:00 06/09/17 07:00 06/09/17 07:00 Intake and Output: 06/09/17 06/09/17 06:59 18:59 Intake Total 150 Balance 150 - Medications Medications: Current Medications Amiodarone HCl (Cordarone) 100 mg PO DAILY [facility] Last Admin: 06/09/17 09:53 Dose: 100 mg Amlodipine Besylate (Norvasc) 5 mg PO DAILY [facility] Last Admin: 06/09/17 09:53 Dose: 5 mg Epoetin Leroy (Procrit) 4,000 unit SC TTS [facility] Last Admin: 06/07/17 12:29 Dose: 4,000 unit Lactic Acid (Lac-Hydrin 12% Lotion (225 G)) 1 gm TOP QID [facility] Last Admin: 06/09/17 09:54 Dose: 1 applic Promethazine HCl/Codeine (Phenergan/Codeine Oral Syrup) 5 ml PO Q6 PRN PRN Reason: Cough Last Admin: 06/05/17 21:45 Dose: 5 ml Sevelamer Carbonate (Renvela) 2,400 mg PO TID [facility] Last Admin: 06/09/17 09:53 Dose: 2,400 mg Tramadol HCl (Ultram) 50 mg PO Q6 PRN PRN Reason: Pain, moderate (4-7) Last Admin: 06/09/17 10:06 Dose: 50 mg Vitamin B Complex/Vit C/Folic Acid (Nephro-Macho) 1 tab PO DAILY [facility] Last Admin: 06/09/17 09:53 Dose: 1 tab - Labs Labs: 06/07/17 10:50 06/07/17 10:50 - Constitutional Appears: No Acute Distress, Chronically Ill - Head Exam Head Exam: ATRAUMATIC, NORMAL INSPECTION - Eye Exam Eye Exam: EOMI, Normal appearance - Neck Exam Neck Exam: Normal Inspection, Tenderness - Respiratory Exam Respiratory Exam: Clear to Ausculation Bilateral, NORMAL BREATHING PATTERN - Cardiovascular Exam Cardiovascular Exam: REGULAR RHYTHM, +S1 - GI/Abdominal Exam GI & Abdominal Exam: Soft. absent: Tenderness - Extremities Exam Extremities Exam: Normal Inspection, Pedal Edema - Neurological Exam Neurological Exam: Awake, CN II-XII Intact - Skin Skin Exam: Dry, Warm Assessment and Plan (1) Cervical myelopathy Status: Acute (2) ESRD (end stage renal disease) Status: Acute (3) Hypertensive chronic kidney disease with stage 5 chronic kidney disease or end stage renal disease Status: Acute - Assessment and Plan (Free Text) Plan: Dialysis today then rehab transfer
--- NOTE | 2017-06-09 13:18 | CP.PCM.PN ---
Subjective - Date & Time of Evaluation Date of Evaluation: 06/09/17 Time of Evaluation: 13:18 - Subjective Subjective: PT CLEARED FOR D/C TODAY. DISCUSSED HIS CONCERNS AND QUESTIONS REGARDING SURGERY VS PHY THER. PT IN AGREEMENT TO HAVE PHY THER DONE. HE IS VERY DOUBTFUL THAT HE WILL HAVE CERVICAL SURGERY DONE 2/2 RISKS OF PARALYSIS AND RESPIRATORY FAILURE. PT AGREES FOR [facility] TODAY. WILL BE D/C TODAY TO [facility]. DR. KUMAR AWARE AND IN AGREEMENT. TO ARRANGE ALL TRANSPORTATION. PT TO F/U WITH DR. KUMAR AND NEUROSURG OP ONCE D/C FROM [facility]. NO FURTHER ORDERS. Objective - Vital Signs/Intake and Output Vital Signs (last 24 hours): Temp Pulse Resp BP Pulse Ox 97.3 F L 105 H 18 109/69 100 06/09/17 07:00 06/09/17 07:00 06/09/17 07:00 06/09/17 07:00 06/09/17 07:00 Intake and Output: 06/09/17 06/09/17 06:59 18:59 Intake Total 150 Balance 150 - Medications Medications: Current Medications Amiodarone HCl (Cordarone) 100 mg PO DAILY [facility] Last Admin: 06/09/17 09:53 Dose: 100 mg Amlodipine Besylate (Norvasc) 5 mg PO DAILY [facility] Last Admin: 06/09/17 09:53 Dose: 5 mg Epoetin Leroy (Procrit) 4,000 unit SC TTS [facility] Last Admin: 06/07/17 12:29 Dose: 4,000 unit Lactic Acid (Lac-Hydrin 12% Lotion (225 G)) 1 gm TOP QID [facility] Last Admin: 06/09/17 09:54 Dose: 1 applic Promethazine HCl/Codeine (Phenergan/Codeine Oral Syrup) 5 ml PO Q6 PRN PRN Reason: Cough Last Admin: 06/05/17 21:45 Dose: 5 ml Sevelamer Carbonate (Renvela) 2,400 mg PO TID [facility] Last Admin: 06/09/17 09:53 Dose: 2,400 mg Tramadol HCl (Ultram) 50 mg PO Q6 PRN PRN Reason: Pain, moderate (4-7) Last Admin: 06/09/17 10:06 Dose: 50 mg Vitamin B Complex/Vit C/Folic Acid (Nephro-Macho) 1 tab PO DAILY [facility] Last Admin: 06/09/17 09:53 Dose: 1 tab - Labs Labs: 06/07/17 10:50 06/07/17 10:50
[2017-06-09 18:58] VITALS: BP 114/58; PULSE 80; RESP 20; TEMP 98; O2SAT 96
--- NOTE | 2017-06-09 20:00 | CP.PCM.DIS ---
Provider - Provider Date of Admission: 06/04/17 07:28 Attending physician: Charles Kumar MD Hospital Course - Lab Results Lab Results: Most Recent Lab Values WBC 3.3 K/uL (4.8-10.8) L 06/07/17 10:50 RBC 2.99 Mil/uL (4.40-5.90) L 06/07/17 10:50 Hgb 9.7 g/dL (12.0-18.0) L 06/07/17 10:50 Hct 30.0 % (35.0-51.0) L 06/07/17 10:50 MCV 100.2 fL (80.0-94.0) H 06/07/17 10:50 MCH 32.5 pg (27.0-31.0) H 06/07/17 10:50 MCHC 32.5 g/dL (33.0-37.0) L 06/07/17 10:50 RDW 18.0 % (11.5-14.5) H 06/07/17 10:50 Plt Count 205 K/uL (130-400) 06/07/17 10:50 MPV 7.7 fL (7.2-11.7) 06/07/17 10:50 Neut % (Auto) 55.4 % (50.0-75.0) 06/07/17 10:50 Lymph % (Auto) 13.0 % (20.0-40.0) L 06/07/17 10:50 [place] % (Auto) 19.3 % (0.0-10.0) H 06/07/17 10:50 Eos % (Auto) 10.1 % (0.0-4.0) H 06/07/17 10:50 Baso % (Auto) 2.2 % (0.0-2.0) H 06/07/17 10:50 Neut # 1.8 K/uL (1.8-7.0) 06/07/17 10:50 Lymph # 0.4 K/uL (1.0-4.3) L 06/07/17 10:50 [place] # 0.6 K/uL (0.0-0.8) 06/07/17 10:50 Eos # 0.3 K/uL (0.0-0.7) 06/07/17 10:50 Baso # 0.1 K/uL (0.0-0.2) 06/07/17 10:50 Sodium 141 mmol/L (132-148) 06/07/17 10:50 Potassium 3.7 mmol/L (3.6-5.2) 06/07/17 10:50 Chloride 100 mmol/L (98-107) 06/07/17 10:50 Carbon Dioxide 29 mmol/L (22-30) 06/07/17 10:50 Anion Gap 16 (10-20) 06/07/17 10:50 BUN 28 mg/dL (9-20) H 06/07/17 10:50 Creatinine 7.2 MG/DL (0.8-1.5) H 06/07/17 10:50 Est GFR ( Amer) 9 06/07/17 10:50 Est GFR (Non-Af Amer) 8 06/07/17 10:50 POC Glucose (mg/dL) 126 mg/dL (65-110) H 06/08/17 21:02 Random Glucose 93 mg/dL (75-110) 06/07/17 10:50 Calcium 9.2 mg/dl (8.6-10.4) 06/07/17 10:50 Phosphorus 4.9 mg/dL (2.5-4.5) H 06/05/17 10:07 Total Bilirubin 0.6 mg/dL (0.2-1.3) 06/07/17 10:50 AST 30 U/L (17-59) 06/07/17 10:50 ALT 19 U/L (21-72) L 06/07/17 10:50 Alkaline Phosphatase 107 U/L (38-126) 06/07/17 10:50 Total Protein 7.9 g/dL (6.3-8.3) 06/07/17 10:50 Albumin 3.6 g/dL (3.5-5.0) 06/07/17 10:50 Globulin 4.3 gm/dL (2.2-3.9) H 06/07/17 10:50 Albumin/Globulin Ratio 0.8 (1.0-2.1) L 06/07/17 10:50 PTH Intact Whole Molec 97 pg/mL (14-64) H 09/07/17 10:33 Hep Bs Antigen Negative (NEGATIVE) 06/05/17 10:07 Hep Bs Antibody Negative (NEGATIVE) 06/05/17 10:09 Discharge Exam - Head Exam Head Exam: ATRAUMATIC, NORMAL INSPECTION Discharge Plan - Follow Up Plan Condition: GOOD Disposition: HOME/ ROUTINE Instructions: Dialysis Diet (GEN), Weakness (GEN), Spinal Cord Injury (GEN) Additional Instructions: CONTINUE ALL MEDICATIONS PER THE DISCHARGE PAPERWORK. PLEASE ENSURE THAT PATIENT IS ABLE TO SLEEP UPRIGHT IN A BEDSIDE RECLINER CHAIR- -THIS POSITION IS MOST COMFORTABLE FOR HIS NECK AND BACK. PLEASE HAVE WOUND CARE TEAM AT FACILITY EVALUATE THE SACRAL AREA AND GIVE RECOMMENDATIONS FOR WOUND CARE. FOR QUESTIONS REGARDING RECENT HOSPITALIZATION, CONTACT DR. KUMAR IN HIS OFFICE. DIALYSIS SCHEDULED BY [employer] TEAM. AFTER DISCHARGE FROM REHAB: FOLLOW UP WITH DR. DAN, DR. KUMAR, DR. ALANIS OR [facility] WITHIN 2-3 WEEKS OF REHAB DISCHARGE. Referrals: Uriel Banuelos MD [Staff Provider] - Pipo Alanis MD [Staff Provider] - Dominick Dan MD [Family Provider] - Ozzie Rose MD [Staff Provider] - Charles Kumar MD [Staff Provider] - Michael Strange MD [Staff Provider] -
--- NOTE | 2017-06-10 13:04 | CARD ---
APPROVED REPORT EKG Measurement Heart [id number] 120P [id number] <Conclusion> Atrial fibrillation with frequent ventricular-paced complexes Left axis deviation Right bundle branch block Abnormal ECG
== END 2017-06-09 21:20 | disposition home or self-care (01) | DRG 551 ==
LOC: C.6T 07:28
PROVIDERS: ADMIT Internal Medicine; ATTEND Internal Medicine
PROC: 5A1D60Z (ICD-10-PCS; principal; 2017-06-04)
DX: M50.01 Cervical disc disorder with myelopathy, high cervical region (principal); N18.6 End stage renal disease; I13.2 Hypertensive heart and chronic kidney disease with heart failure and with stage 5 chronic kidney disease, or end stage renal disease; E11.22 Type 2 diabetes mellitus with diabetic chronic kidney disease; N25.81 Secondary hyperparathyroidism of renal origin; I27.2 Other secondary pulmonary hypertension; I48.91 Unspecified atrial fibrillation; I48.92 Unspecified atrial flutter; E78.00 Pure hypercholesterolemia, unspecified; I50.9 Heart failure, unspecified; L29.9 Pruritus, unspecified; Z87.891 Personal history of nicotine dependence; Z95.0 Presence of cardiac pacemaker; Z99.2 Dependence on renal dialysis

== ENCOUNTER 2017-09-03 18:45 | Emergency (ER) | payer MEDICARE, MEDICAID ==
[2017-09-03 18:45] VITALS: BMI 30.5
[2017-09-03 19:07] VITALS: RESP 20
--- NOTE | 2017-09-03 19:21 | C.PDOC ---
History Of Present Illness 67 year old male presents to the ED for evaluation of generalized itchiness which occurred earlier today. Patient was at dialysis earlier today and developed generalized itching after receiving Vancomycin IV. Patient was sent in to the ED for further evaluation. Patient states he is asymptomatic and denies fever, chills, throat swelling sensation, generalized swelling, chest pain, shortness of breath, headache, lightheadedness. Time Seen by Provider: 09/03/17 19:12 Chief Complaint (Nursing): Allergic Reaction History Per: Patient History/Exam Limitations: no limitations Onset/Duration Of Symptoms: Hrs Current Symptoms Are (Timing): Better Additional History Per: Patient Past Medical History Reviewed: Historical Data, Nursing Documentation, Vital Signs Vital Signs: Last Vital Signs Temp 97.5 F L 09/03/17 19:03 Pulse 78 09/03/17 19:03 Resp 20 09/03/17 19:03 BP 157/82 H 09/03/17 19:03 Pulse Ox 96 09/03/17 19:30 - Medical History PMH: Anemia, Arthritis (OA, Gout), Atrial Fibrillation, Cardia Arrhythmia, CHF, HTN, Peripheral Edema, Pneumonia (2006), End Stage Renal Disease, Chronic Kidney Disease Denies: HIV, Kidney Stones Surgical History: Pacemaker, Tonsillectomy - [facility] Procedures ATRIAL CARDIOVERSION (05/17/14) DX ULTRASOUND-HEART (05/17/14) GAIT TRAINING/AMBULAT TREATMENT USING ASSIST EQUIPMENT (05/30/17) HEMODIALYSIS (07/26/14) PERFORMANCE OF URINARY FILTRATION, MULTIPLE (06/04/17) PERFORMANCE OF URINARY FILTRATION, SINGLE (06/01/17) VACCINATION NEC (07/26/14) Family History: States: CAD, Hypertension - Social History Hx Tobacco Use: No Hx Alcohol Use: No Hx Substance Use: No - Immunization History Hx Tetanus Toxoid Vaccination: (unk) Hx Influenza Vaccination: Yes Hx Pneumococcal Vaccination: (unk) Review Of Systems Constitutional: Negative for: Fever, Chills Cardiovascular: Negative for: Chest Pain Respiratory: Negative for: Cough, Shortness of Breath Skin: Positive for: Other (generalized itchiness ) Neurological: Negative for: Headache, Other (lightheadedness) Physical Exam - Physical Exam Appears: Non-toxic, No Acute Distress Skin: Normal Color, Warm, Dry, No Rash Oral Mucosa: Moist Neck: Supple Chest: Symmetrical, No Deformity, No Tenderness Cardiovascular: Rhythm Regular, No Murmur Respiratory: Normal Breath Sounds, No Rales, No Rhonchi, No Wheezing Extremity: Normal ROM, Capillary Refill (less 2 seconds ) Neurological/Psych: Oriented x3, Normal Speech, Normal Cognition Gait: Steady ED Course And Treatment O2 Sat by Pulse Oximetry: 96 (on RA) Pulse Ox Interpretation: Normal - Physician Consult Information Outcome Of Conversation: Dr Joel Arzola notified. Will follow up as an outpatient. Disposition Counseled Patient/Family Regarding: Diagnosis, Need For Followup - Disposition Referrals: Nikita Arzola MD [Staff Provider] - Disposition: HOME/ ROUTINE Disposition Time: 19:20 Condition: IMPROVED Instructions: Antibiotic Medication Allergy (ED) Forms: [employer] (Greenlandic) - Clinical Impression Clinical Impression: Allergic reaction caused by a drug - Scribe Statement The provider has reviewed the documentation as recorded by the Scribe (Jessica Arzola) Provider Attestation: All medical record entries made by the Scribe were at my direction and personally dictated by me. I have reviewed the chart and agree that the record accurately reflects my personal performance of the history, physical exam, medical decision making, and the department course for this patient. I have also personally directed, reviewed, and agree with the discharge instructions and disposition.
[2017-09-03 20:20] VITALS: BP 130/75; PULSE 84; TEMP 97.8; O2SAT 98
== END 2017-09-03 20:20 | disposition home or self-care (01) ==
LOC: C.ER 18:45
DX: T36.8X5A Adverse effect of other systemic antibiotics, initial encounter (principal); Y92.89 Other specified places as the place of occurrence of the external cause

== ENCOUNTER 2017-10-22 17:36 | Inpatient (IN) | payer MEDICARE, MEDICAID ==
[2017-10-22 17:55] VITALS: BMI 24.4
--- NOTE | 2017-10-22 17:55 | C.PDOC ---
History Of Present Illness 67 y/o male sent from skilled nursing for evaluation of sob for 3 days. Patient states he has trouble breathing with associated generalized weakness. Patient states he goes to physical therapy and today "they took him past his endurance" , patient is a dialysis patient and reports finishing session today. Patient states "I feel like I am dying" and denies chest pain, fever, chills, cough or any other complaints at this time. Time Seen by Provider: 10/22/17 17:51 Chief Complaint (Nursing): Shortness Of Breath History Per: Patient History/Exam Limitations: no limitations Onset/Duration Of Symptoms: Days Current Symptoms Are (Timing): Still Present Past Medical History Reviewed: Historical Data, Nursing Documentation, Vital Signs Vital Signs: Last Vital Signs Temp 97.1 F L 10/22/17 17:55 Pulse 83 10/22/17 17:55 Resp 18 10/22/17 18:20 BP 117/62 10/22/17 17:55 Pulse Ox 94 L 10/22/17 18:20 - Medical History PMH: Anemia, Arthritis (OA, Gout, neck), Atrial Fibrillation, Cardia Arrhythmia , CHF, HTN, Peripheral Edema, Pneumonia (2006), End Stage Renal Disease, Chronic Kidney Disease Surgical History: Pacemaker, Tonsillectomy - [facility] Procedures (09/27/17) ATRIAL CARDIOVERSION (05/17/14) DX ULTRASOUND-HEART (05/17/14) GAIT TRAINING/AMBULAT TREATMENT USING ASSIST EQUIPMENT (05/30/17) HEMODIALYSIS (07/26/14) PERFORMANCE OF URINARY FILTRATION, MULTIPLE (06/04/17) PERFORMANCE OF URINARY FILTRATION, SINGLE (06/01/17) VACCINATION NEC (07/26/14) Family History: States: CAD, Hypertension - Social History Hx Tobacco Use: No Hx Alcohol Use: No Hx Substance Use: No - Immunization History Hx Tetanus Toxoid Vaccination: (unk) Hx Influenza Vaccination: Yes Hx Pneumococcal Vaccination: (unk) Review Of Systems Constitutional: Negative for: Fever, Chills Cardiovascular: Negative for: Chest Pain Respiratory: Positive for: Shortness of Breath Gastrointestinal: Negative for: Nausea, Vomiting Skin: Negative for: Rash Neurological: Positive for: Weakness Physical Exam - Physical Exam Appears: Non-toxic, Chronically Ill Skin: Dry, No Rash Head: Atraumatic, Normacephalic Oral Mucosa: Moist Neck: Normal ROM, Supple Cardiovascular: Rhythm Irregular Respiratory: Decreased Breath Sounds (at bases), Rales (diffuse rales bilaterally) Gastrointestinal/Abdominal: Soft, No Tenderness, No Guarding, No Rebound Extremity: No Pedal Edema, No Other (AV shunt on left arm) Neurological/Psych: Oriented x3 ED Course And Treatment - Laboratory Results Result Diagrams: 10/22/17 18:38 10/22/17 18:38 Lab Interpretation: Abnormal (Anemia related to ESRD. BUN 46, Cr 5.7, BNP 51228 , Normal troponin) ECG: Interpreted By Me ECG Rhythm: Atrial Fibrillation (with LVH and left axis), R BBB ECG Interpretation: No Changes From Prior - Radiology CXR: Interpreted by Me CXR Interpretation: Yes: Cardiomegaly, Other (pulmonary edema) - Physician Consult Information Time Consulting Physician Contacted: 19:51 Physician Contacted: Nikita Arozla Outcome Of Conversation: Patient to be admitted for fluid management. Dr Lucio notified. Disposition - Disposition Disposition: HOSPITALIZED Disposition Time: 20:52 Condition: SERIOUS - POA Present On Arrival: None - Clinical Impression Clinical Impression: ESRD needing dialysis, Dyspnea, CHF (congestive heart failure) - Scribe Statement The provider has reviewed the documentation as recorded by the Scribe Nasir Ortiz All medical record entries made by the Scribe were at my direction and personally dictated by me. I have reviewed the chart and agree that the record accurately reflects my personal performance of the history, physical exam, medical decision making, and the department course for this patient. I have also personally directed, reviewed, and agree with the discharge instructions and disposition.
[2017-10-22 18:47] LABS: BASO # 0.1 K/uL (0.0-0.2); BASO % 1.4 % (0.0-2.0); EOS % 0.8 % (0.0-4.0); HEMOGLOBIN 8.2 g/dL (12.0-18.0); LYMPH # 0.8 K/uL (1.0-4.3); LYMPH % 17.2 % (20.0-40.0); MEAN CELL VOLUME 99.2 fL (80.0-94.0); MEAN CORPUSCULAR HEMOGLOBIN 33.6 pg (27.0-31.0); MEAN CORPUSCULAR HGB CONC 33.9 g/dL (33.0-37.0); MEAN PLATELET VOLUME 7.7 fL (7.2-11.7); MONO # 0.7 K/uL (0.0-0.8); MONO % 15.9 % (0.0-10.0); NEUT % 64.7 % (50.0-75.0); NRBC % 0.1 % (0.0-2.0); RBC 2.44 Mil/uL (4.40-5.90); RED CELL DISTRIBUTION WIDTH 18.2 % (11.5-14.5); WHITE BLOOD COUNT 4.7 K/uL (4.8-10.8)
[2017-10-22 19:08] LABS: ALB/GLOB RATIO 0.6 (1.0-2.1); ALBUMIN 3.1 g/dL (3.5-5.0)
[2017-10-22 19:20] LABS: B-TYPE NATRIURETIC PEPTIDE 27200 pg/mL (0-900)
[2017-10-22 19:43] LABS: ALT/SGPT 9 U/L (21-72); AST/SGOT 24 U/L (17-59); BLOOD UREA NITROGEN 46 mg/dL (9-20); CALCIUM 8.4 mg/dl (8.6-10.4); GFR AFRICAN-AMERICAN 12; GFR NON-AFRICAN AMERICAN 10; MAGNESIUM 2.5 mg/dL (1.6-2.3)
--- NOTE | 2017-10-22 23:39 | CP.PCM.HP ---
Past Patient History - Infectious Disease Hx of Infectious Diseases: None - Past Medical History & Family History Past Medical History?: Yes - Past Social History Smoking Status: Former Smoker - CARDIAC Hx Atrial Fibrillation: Yes Hx Cardia Arrhythmia: Yes Hx Congestive Heart Failure: Yes Hx Hypertension: Yes Hx Pacemaker: Yes Hx Peripheral Edema: Yes - PULMONARY Hx Pneumonia: Yes (2006) - NEUROLOGICAL Hx Neurological Disorder: Yes Hx Syncope: Yes Other/Comment: COMATOSE 1 MONTH 2007 DUE TO RENAL FAILURE - HEENT Hx HEENT Problems: No - RENAL Hx Chronic Kidney Disease: Yes - ENDOCRINE/METABOLIC Hx Endocrine Disorders: No - HEMATOLOGICAL/ONCOLOGICAL Hx Anemia: Yes - INTEGUMENTARY Hx Dermatological Problems: Yes Other/Comment: CHRONIC PRURITUS - MUSCULOSKELETAL/RHEUMATOLOGICAL Hx Arthritis: Yes (OA, Gout, neck) - GASTROINTESTINAL Hx Gastrointestinal Disorders: Yes Other/Comment: ABD HERNIA HISTORY FEEDING TUBE INSERTION AND REMOVAL - GENITOURINARY/GYNECOLOGICAL Hx Genitourinary Disorders: No - PSYCHIATRIC Hx Substance Use: No - SURGICAL HISTORY Hx Tonsillectomy: Yes - ANESTHESIA Hx Anesthesia: Yes Hx Anesthesia Reactions: No Hx Malignant Hyperthermia: No Meds Allergies/Adverse Reactions: Allergies Allergy/AdvReac Type Severity Reaction Status Date / Time vancomycin Allergy RASH Verified 10/22/17 17:54 олег inhibitors Allergy Mild ANAPHYLAXIS Uncoded 10/22/17 17:54 Results - Vital Signs Recent Vital Signs: Last Vital Signs Temp 97.8 F 10/22/17 22:52 Pulse 69 10/22/17 22:52 Resp 20 10/22/17 22:52 BP 126/78 10/22/17 22:52 Pulse Ox 96 10/22/17 22:52 - Labs Result Diagrams: 10/22/17 18:38 10/22/17 18:38 Labs: Laboratory Results - last 24 hr 10/22/17 10/22/17 18:38 18:38 WBC 4.7 L RBC 2.44 L Hgb 8.2 L Hct 24.2 L MCV 99.2 H MCH 33.6 H MCHC 33.9 RDW 18.2 H Plt Count 301 MPV 7.7 Neut % (Auto) 64.7 Lymph % (Auto) 17.2 L [place] % (Auto) 15.9 H Eos % (Auto) 0.8 Baso % (Auto) 1.4 Neut # 3.0 Lymph # 0.8 L [place] # 0.7 Eos # 0.0 Baso # 0.1 Sodium 131 L Potassium 4.1 Chloride 94 L Carbon Dioxide 29 Anion Gap 13 BUN 46 H Creatinine 5.7 H Est GFR ( Amer) 12 Est GFR (Non-Af Amer) 10 Random Glucose 110 Calcium 8.4 L Magnesium 2.5 H Total Bilirubin 0.6 AST 24 ALT 9 L D Alkaline Phosphatase 169 H D Troponin I < 0.0120 NT-Pro-B Natriuret Pep 68550 H Total Protein 8.6 H Albumin 3.1 L Globulin 5.4 H Albumin/Globulin Ratio 0.6 L
[2017-10-23] MEDS ORDERED: Tramadol 25 mg PO ONE (00:26)
[2017-10-23] MEDS: Albuterol-Ipratrop 3 mg / 0.5 (3 ml) UD INH PRN ×2 (01:25→18:42)
--- NOTE | 2017-10-23 08:47 | RAD ---
Chest x-ray single frontal view History: Shortness of breath. Comparison: 01/13/2017 Findings: Moderate to severe venous congestion. Moderate to large left and small to moderate right pleural effusion. Confluent patchy airspace consolidative changes at the left lung base and the right midlung zone. Biapical pleural thickening with upper lobe granulomatous changes. Cardiomegaly. Calcification at the aortic knob. Vascular stent projecting over the left upper stanislav thorax. Right-sided pacemaker. Degenerative changes in the spine and shoulders. Impression: Moderate to severe venous congestion. Moderate to large left and small to moderate right pleural effusion. Confluent patchy airspace consolidative changes at the left lung base and the right midlung zone. Biapical pleural thickening with upper lobe granulomatous changes. Cardiomegaly. Calcification at the aortic knob.
[2017-10-23] MEDS ORDERED: Epoetin Alfa 4000 UNIT/ML Inj SC SCH (10:00)
[2017-10-23] MEDS ORDERED: cefTRIAXone IV 1 gm in Dextros 1 GM in Dextrose 5% In Water 50 ML IVPB SCH (10:00)
[2017-10-23] MEDS: Multivitamin Vitamin B Complex (Nephro-Vite) Tab PO SCH (10:13)
--- NOTE | 2017-10-23 11:04 | CP.PCM.CON ---
History of Present Illness - History of Present Illness History of Present Illness: 67 y/o male sent from retirement for evaluation of sob for 3 days. Patient states he has trouble breathing with associated generalized weakness. Patient states he goes to physical therapy and today "they took him past his endurance" , patient is a dialysis patient and reports finishing session today. Patient states "I feel like I am dying" and denies chest pain, fever, chills, cough or any other complaints at this time. PMH: ESRD NEPHROSCLEROSIS HTN SEC HPT CHF COPD PAROXYSMAL AFIB PSH: AV FISTULA AND REVISIONS Review of Systems - Review of Systems Systems not reviewed;Unavailable: Respiratory Distress Past Patient History - Infectious Disease Hx of Infectious Diseases: None - Past Medical History & Family History Past Medical History?: Yes Past Family History: Reviewed and not pertinent - Past Social History Smoking Status: Former Smoker Chewing Tobacco Use: No Cigar Use: No Alcohol: None Drugs: Denies Home Situation {Lives}: Long-Term - CARDIAC Hx Cardiac Disorders: Yes Hx Atrial Fibrillation: Yes Hx Cardia Arrhythmia: Yes Hx Congestive Heart Failure: Yes Hx Hypertension: Yes Hx Pacemaker: Yes Hx Peripheral Edema: Yes - PULMONARY Hx Respiratory Disorders: Yes Hx Pneumonia: Yes (2006) - NEUROLOGICAL Hx Neurological Disorder: Yes Hx Syncope: Yes Other/Comment: COMATOSE 1 MONTH 2008 DUE TO RENAL FAILURE - HEENT Hx HEENT Problems: No - RENAL Hx Chronic Kidney Disease: Yes Type of Dialysis Access: L Arm AV fistula Date of Last Dialysis Treatment: 10/22/17 Hx Renal Failure: Yes - ENDOCRINE/METABOLIC Hx Endocrine Disorders: No - HEMATOLOGICAL/ONCOLOGICAL Hx Blood Disorders: Yes Hx Anemia: Yes - INTEGUMENTARY Hx Dermatological Problems: Yes Other/Comment: CHRONIC PRURITUS - MUSCULOSKELETAL/RHEUMATOLOGICAL Hx Musculoskeletal Disorders: Yes Hx Arthritis: Yes (OA, Gout, neck) Hx Falls: Yes - GASTROINTESTINAL Hx Gastrointestinal Disorders: Yes Other/Comment: ABD HERNIA HISTORY FEEDING TUBE INSERTION AND REMOVAL - GENITOURINARY/GYNECOLOGICAL Hx Genitourinary Disorders: No - PSYCHIATRIC Hx Psychophysiologic Disorder: No Hx Substance Use: No - SURGICAL HISTORY Hx Tonsillectomy: Yes - ANESTHESIA Hx Anesthesia: Yes Hx Anesthesia Reactions: No Hx Malignant Hyperthermia: No Meds Allergies/Adverse Reactions: Allergies Allergy/AdvReac Type Severity Reaction Status Date / Time vancomycin Allergy RASH Verified 10/22/17 17:54 олег inhibitors Allergy Mild ANAPHYLAXIS Uncoded 10/22/17 17:54 - Medications Medications: Current Medications Albuterol/Ipratropium (Duoneb 3 Mg/0.5 Mg (3 Ml) Ud) 3 ml INH RQ6 PRN PRN Reason: Shortness of Breath Last Admin: 10/23/17 01:25 Dose: 3 ml Amiodarone HCl (Cordarone) 100 mg PO DAILY [facility] Amlodipine Besylate (Norvasc) 5 mg PO DAILY [facility] Last Admin: 10/23/17 10:13 Dose: 5 mg Aspirin (Ecotrin) 81 mg PO DAILY [facility] Last Admin: 10/23/17 10:13 Dose: 81 mg Epoetin Leroy (Procrit) 4,000 unit SC TTS [facility] Furosemide (Lasix) 40 mg IVP DAILY [facility] Last Admin: 10/23/17 10:13 Dose: 40 mg Heparin Sodium (Porcine) (Heparin) 5,000 units SC Q12 [facility] Last Admin: 10/23/17 10:13 Dose: 5,000 units Ceftriaxone Sodium 1 gm/ (Dextrose) 100 mls @ 50 mls/30 min IVPB DAILY [facility] Azithromycin 500 mg/ Sodium (Chloride) 250 mls @ 250 mls/hr IVPB DAILY [facility] Lactic Acid (Lac-Hydrin 12% Lotion (225 G)) 0 gm TOP QID [facility] Losartan Potassium (Cozaar) 50 mg PO DAILY [facility] Pneumococcal Polyvalent Vaccine (Pneumovax 23 Vaccine) 0.5 ml IM .ONCE ONE Stop: 10/25/17 10:01 Sevelamer Carbonate (Renvela) 2,400 mg PO TID [facility] Last Admin: 10/23/17 10:11 Dose: 2,400 mg Tramadol HCl (Ultram) 50 mg PO Q12 [facility] Last Admin: 10/23/17 10:11 Dose: 50 mg Vitamin B Complex/Vit C/Folic Acid (Nephro-Macho) 1 tab PO DAILY [facility] Last Admin: 10/23/17 10:13 Dose: 1 tab Physical Exam - Constitutional Appears: In Acute Distress, Chronically Ill - Head Exam Head Exam: ATRAUMATIC, NORMAL INSPECTION - Eye Exam Eye Exam: EOMI, Normal appearance - Neck Exam Neck exam: Positive for: Normal Inspection. Negative for: Tenderness - Respiratory Exam Respiratory Exam: Rales, Respiratory Distress - Cardiovascular Exam Cardiovascular Exam: REGULAR RHYTHM, +S1 - GI/Abdominal Exam GI & Abdominal Exam: Soft. absent: Tenderness - Extremities Exam Extremities exam: Positive for: normal inspection. Negative for: tenderness - Neurological Exam Neurological exam: Alert, CN II-XII Intact - Skin Skin Exam: Intact, Warm Results - Vital Signs Recent Vital Signs: Last Vital Signs Temp 97.9 F 10/23/17 07:23 Pulse 76 10/23/17 10:10 Resp 20 10/23/17 07:23 BP 111/69 10/23/17 10:13 Pulse Ox 97 10/23/17 07:23 - Labs Result Diagrams: 10/22/17 18:38 10/22/17 18:38 Labs: Laboratory Results - last 24 hr 10/22/17 10/22/17 18:38 18:38 WBC 4.7 L RBC 2.44 L Hgb 8.2 L Hct 24.2 L MCV 99.2 H MCH 33.6 H MCHC 33.9 RDW 18.2 H Plt Count 301 MPV 7.7 Neut % (Auto) 64.7 Lymph % (Auto) 17.2 L [place] % (Auto) 15.9 H Eos % (Auto) 0.8 Baso % (Auto) 1.4 Neut # 3.0 Lymph # 0.8 L [place] # 0.7 Eos # 0.0 Baso # 0.1 Sodium 131 L Potassium 4.1 Chloride 94 L Carbon Dioxide 29 Anion Gap 13 BUN 46 H Creatinine 5.7 H Est GFR ( Amer) 12 Est GFR (Non-Af Amer) 10 Random Glucose 110 Calcium 8.4 L Magnesium 2.5 H Total Bilirubin 0.6 AST 24 ALT 9 L D Alkaline Phosphatase 169 H D Troponin I < 0.0120 NT-Pro-B Natriuret Pep 03835 H Total Protein 8.6 H Albumin 3.1 L Globulin 5.4 H Albumin/Globulin Ratio 0.6 L Assessment & Plan (1) Cervical myelocele Status: Acute (2) ESRD needing dialysis Status: Chronic Priority: High - Assessment and Plan (Free Text) Plan: DUE TO WORSENING chf WILL INITIATE DIALYSIS [facility] Check patency AV F- might need surgical intervention
[2017-10-23] MEDS: Azithromycin 500 MG in Sodium Chloride 0.9% 250 ML IVPB SCH (11:25)
[2017-10-23 12:02] LABS: HEMOGLOBIN 7.4 g/dL (12.0-18.0); MEAN CELL VOLUME 98.6 fL (80.0-94.0); MEAN CORPUSCULAR HEMOGLOBIN 33.6 pg (27.0-31.0); MEAN CORPUSCULAR HGB CONC 34.1 g/dL (33.0-37.0); MEAN PLATELET VOLUME 7.5 fL (7.2-11.7); RBC 2.21 Mil/uL (4.40-5.90); RED CELL DISTRIBUTION WIDTH 18.3 % (11.5-14.5); WHITE BLOOD COUNT 4.6 K/uL (4.8-10.8)
--- NOTE | 2017-10-23 12:16 | CP.PCM.PN ---
Subjective - Date & Time of Evaluation Date of Evaluation: 10/23/17 Time of Evaluation: 14:20 - Subjective Subjective: clinically same Objective - Vital Signs/Intake and Output Vital Signs (last 24 hours): Temp Pulse Resp BP Pulse Ox 97.9 F 76 20 111/69 97 10/23/17 07:23 10/23/17 10:10 10/23/17 07:23 10/23/17 10:13 10/23/17 07:23 Intake and Output: 10/23/17 10/23/17 06:59 18:59 Intake Total 200 Balance 200 - Medications Medications: Current Medications Albuterol/Ipratropium (Duoneb 3 Mg/0.5 Mg (3 Ml) Ud) 3 ml INH RQ6 PRN PRN Reason: Shortness of Breath Last Admin: 10/23/17 01:25 Dose: 3 ml Amiodarone HCl (Cordarone) 100 mg PO DAILY [facility] Last Admin: 10/23/17 11:24 Dose: Not Given Amlodipine Besylate (Norvasc) 5 mg PO DAILY [facility] Last Admin: 10/23/17 10:13 Dose: 5 mg Aspirin (Ecotrin) 81 mg PO DAILY [facility] Last Admin: 10/23/17 10:13 Dose: 81 mg Epoetin Leroy (Procrit) 4,000 unit SC TTS [facility] Furosemide (Lasix) 40 mg IVP DAILY [facility] Last Admin: 10/23/17 10:13 Dose: 40 mg Heparin Sodium (Porcine) (Heparin) 5,000 units SC Q12 [facility] Last Admin: 10/23/17 10:13 Dose: 5,000 units Ceftriaxone Sodium 1 gm/ (Dextrose) 100 mls @ 50 mls/30 min IVPB DAILY [facility] Last Admin: 10/23/17 11:25 Dose: Not Given Azithromycin 500 mg/ Sodium (Chloride) 250 mls @ 250 mls/hr IVPB DAILY [facility] Last Admin: 10/23/17 11:25 Dose: Not Given Lactic Acid (Lac-Hydrin 12% Lotion (225 G)) 0 gm TOP QID [facility] Losartan Potassium (Cozaar) 50 mg PO DAILY [facility] Last Admin: 10/23/17 10:33 Dose: Not Given Pneumococcal Polyvalent Vaccine (Pneumovax 23 Vaccine) 0.5 ml IM .ONCE ONE Stop: 10/25/17 10:01 Sevelamer Carbonate (Renvela) 2,400 mg PO TID [facility] Last Admin: 10/23/17 10:11 Dose: 2,400 mg Tramadol HCl (Ultram) 50 mg PO Q12 [facility] Last Admin: 10/23/17 10:11 Dose: 50 mg Vitamin B Complex/Vit C/Folic Acid (Nephro-Macho) 1 tab PO DAILY [facility] Last Admin: 10/23/17 10:13 Dose: 1 tab - Labs Labs: 10/23/17 11:58 10/22/17 18:38 - Constitutional Appears: Well - Head Exam Head Exam: ATRAUMATIC, NORMAL INSPECTION, NORMOCEPHALIC - Eye Exam Eye Exam: EOMI, Normal appearance, PERRL Pupil Exam: NORMAL ACCOMODATION, PERRL - ENT Exam ENT Exam: Mucous Membranes Moist, Normal Exam - Neck Exam Neck Exam: Full ROM, Normal Inspection. absent: Lymphadenopathy - Respiratory Exam Respiratory Exam: Decreased Breath Sounds - Cardiovascular Exam Cardiovascular Exam: REGULAR RHYTHM, +S1, +S2 - GI/Abdominal Exam GI & Abdominal Exam: Soft, Diminished Bowel Sounds - Rectal Exam Rectal Exam: Deferred
[2017-10-23 12:28] LABS: ALB/GLOB RATIO 0.6 (1.0-2.1); CALCIUM 8.4 mg/dl (8.6-10.4)
[2017-10-23] MEDS ORDERED: EPOETIN ALFA 4,000 UNIT/ML ML Dialysis IV SCH (12:30)
[2017-10-23] MEDS: Ammonium Lactate 12% Lotion (225 g) TOP SCH ×4 (12:42→22:20)
--- NOTE | 2017-10-23 12:50 | CARD ---
APPROVED REPORT EKG Measurement Heart [id number] <Conclusion> Atrial fibrillation Left axis deviation Right bundle branch block Minimal voltage criteria for LVH, may be normal variant Inferior infarct, age undetermined T wave abnormality, consider lateral ischemia Abnormal ECG
--- NOTE | 2017-10-23 13:05 | CP.PCM.PN ---
Subjective - Date & Time of Evaluation Date of Evaluation: 10/23/17 Time of Evaluation: 13:01 - Subjective Subjective: PGY [address] Arzola 67 year old male with past medical history of HTN, AV block s/p AICD, CHF, ESRD on HD [facility] is admitted for CHF exacerbation. Pt was having progressive shortness of breath. [place] admission [place] [address]. CXR showed increased effusions in lower lung base. Pt is seen and examined at bedside this morning. No acute events overnight. Denies having any CP, abd pain, N/V/D/C, F/C. Complaining of shortness of breath. Currently on 2 L NC. 12 point ROS negative except for above mentioned. Objective - Vital Signs/Intake and Output Vital Signs (last 24 hours): Temp Pulse Resp BP Pulse Ox 98.2 F 69 22 104/61 97 10/23/17 11:45 10/23/17 11:45 10/23/17 11:45 10/23/17 12:45 10/23/17 11:45 Intake and Output: 10/23/17 10/23/17 06:59 18:59 Intake Total 200 Balance 200 - Medications Medications: Current Medications Albuterol/Ipratropium (Duoneb 3 Mg/0.5 Mg (3 Ml) Ud) 3 ml INH RQ6 PRN PRN Reason: Shortness of Breath Last Admin: 10/23/17 01:25 Dose: 3 ml Amiodarone HCl (Cordarone) 100 mg PO DAILY [facility] Last Admin: 10/23/17 11:24 Dose: Not Given Amlodipine Besylate (Norvasc) 5 mg PO DAILY [facility] Last Admin: 10/23/17 10:13 Dose: 5 mg Aspirin (Ecotrin) 81 mg PO DAILY [facility] Last Admin: 10/23/17 10:13 Dose: 81 mg Epoetin Leroy (Procrit) 4,000 unit IV TTS [facility] Furosemide (Lasix) 40 mg IVP DAILY [facility] Last Admin: 10/23/17 10:13 Dose: 40 mg Heparin Sodium (Porcine) (Heparin) 5,000 units SC Q12 [facility] Last Admin: 10/23/17 10:13 Dose: 5,000 units Ceftriaxone Sodium 1 gm/ (Dextrose) 100 mls @ 50 mls/30 min IVPB DAILY [facility] Last Admin: 10/23/17 11:25 Dose: Not Given Azithromycin 500 mg/ Sodium (Chloride) 250 mls @ 250 mls/hr IVPB DAILY [facility] Last Admin: 10/23/17 11:25 Dose: Not Given Lactic Acid (Lac-Hydrin 12% Lotion (225 G)) 0 gm TOP QID [facility] Last Admin: 10/23/17 12:42 Dose: Not Given Losartan Potassium (Cozaar) 50 mg PO DAILY [facility] Last Admin: 10/23/17 10:33 Dose: Not Given Pneumococcal Polyvalent Vaccine (Pneumovax 23 Vaccine) 0.5 ml IM .ONCE ONE Stop: 10/25/17 10:01 Sevelamer Carbonate (Renvela) 2,400 mg PO TID [facility] Last Admin: 10/23/17 10:11 Dose: 2,400 mg Tramadol HCl (Ultram) 50 mg PO Q12 [facility] Last Admin: 10/23/17 10:11 Dose: 50 mg Vitamin B Complex/Vit C/Folic Acid (Nephro-Bobby) 1 tab PO DAILY [facility] Last Admin: 10/23/17 10:13 Dose: 1 tab - Labs Labs: 10/23/17 11:58 10/23/17 11:58 - Constitutional Appears: Non-toxic, No Acute Distress - Head Exam Head Exam: ATRAUMATIC - ENT Exam ENT Exam: Mucous Membranes Moist - Respiratory Exam Respiratory Exam: Clear to Ausculation Bilateral. absent: Accessory Muscle Use , Rales, Rhonchi, Wheezes, Respiratory Distress - Cardiovascular Exam Cardiovascular Exam: REGULAR RHYTHM, +S1, +S2. absent: Gallop, Rubs, Murmur - GI/Abdominal Exam GI & Abdominal Exam: Soft, Normal Bowel Sounds. absent: Distended, Firm, Guarding, Rigid, Tenderness, Organomegaly - Extremities Exam Extremities Exam: absent: Pedal Edema, Tenderness - Neurological Exam Neurological Exam: Alert, Awake, Oriented x3 - Psychiatric Exam Psychiatric exam: Normal Affect, Normal Mood - Skin Skin Exam: Dry, Normal Color, Warm. absent: Intact Additional comments: extremely dry skin Assessment and Plan - Assessment and Plan (Free Text) Assessment: CHF exacerbation [place] admission 36053 CXR showed increased effusion in lower lung lobe ECHO showed normal LV systolic function with LV concentric hypertrophy, severe tricuspid regurg with mild pulm HTN Currently on Lasixs 40 mg IVP Cardiology is consulted ESRD on HD Nephrology consulted Pt on HD on MWF. However, due to worsening kideny function, pt will have dialysis today Continue procrit 10,000unit TTS Continue renvela 2400mg PO TID Continue nephro-bobby 1 tab po qd Left upper extremity swelling On Augmentin Q12 10/01/2017: Duplex is negative for DVT Will need to assess AV fistula patency. HTN Pt on norvasc and cozaar at home. Will hold for now due to hypotension Anemia of CKD procrit increased to 10,000unit TTS will continue to monitor Hx AV block and A. flutter AV block: AICD Aflutter: s/p cardioversion 2011 on amiodarone 100mg daily and aspirin Chronic Pain Continue Tramadol 50 mg PO Q12h Lower extremity hyperkeratosis Lac-hydrin lotion Wound care management ordered Prophylaxis Protonix Heparin PT/OT All orders and managements per Dr. Arzola
[2017-10-23] MEDS ORDERED: Albumin Human 25% (12.5 gm/50 ml) IV PRN (13:12)
[2017-10-23] MEDS ORDERED: Epoetin Alfa 10,000 unit/ml Dialysis IV SCH (13:45)
--- NOTE | 2017-10-23 17:25 | CP.PCM.CON ---
History of Present Illness - History of Present Illness History of Present Illness: Patient is a 67 year old male with history of anemia, arthritis, Atrial fibrillation, CHF, HTN, peripheral edema, ESRD on dialysis (MWF) who presented to the ED on 10/22/17 from [facility] after he experienced 3 day history of shortness of breath associated with generalized weakness. He reportedly exerted himself too much while at physical therapy. He admits to having a cough, however he denies fevers, nasal congestion, chest pain, abdominal pain, nausea, vomiting, diarrhea. He states that he has never been diagnosed with COPD or asthma, but has been on oxygen while in the assisted for the past few months. He states he has never had major any issues with his breathing before. PMH: anemia, arthritis, Atrial fibrillation, CHF, HTN, peripheral edema, ESRD on dialysis (MWF) PSH: pacemaker, tonsillectomy, AV fistula and revision Family hx: CAD, HTN Social hx: Used to smoke cigars in the past, denies ETOH or illicit drug use. Currently lives in [facility]. Meds: See MAR Allergies: vancomycin, олег inhibitors. Assessment and plan 67 year old male with history of anemia, arthritis, Atrial fibrillation, CHF, HTN, peripheral edema, ESRD on dialysis (MWF) who presented to the ED on from [facility] after he experienced 3 day history of shortness of breath associated with generalized weakness. Pulmonology consulted for evaluation of shortness of breath and possible pneumonia. Dyspnea likely secondary to pulmonary edema CXR Moderate to severe venous congestion. Moderate to large left and small to moderate right pleural effusion. Confluent patchy airspace consolidative changes at the left lung base and the right midlung zone. Biapical pleural thickening with upper lobe granulomatous changes. Cardiomegaly. Calcification at the aortic knob. proBNP [id number] Patient undergoing dialysis today as per Nephro Dr. Lucio O2 sat 97% on 3L O2 via NC. Repeat CXR after dialysis Trop neg ECHO from 05/24/17 revealed normal LV systolic function with EF 60%. Concentric LVH. Severe tricuspid regurgitation with mild pulmonary HTN. Underlying pneumonia cannot be ruled out Afebrile WBC 4.7 Continue IV antibiotics - Azithromycin 500mg IV and Ceftriaxone 1g IV Follow up on Procalcitonin level Follow up on mycoplasma, legionella studies Duoneb 3ml INH Q6 PRN Past Patient History - Infectious Disease Hx of Infectious Diseases: None - Past Medical History & Family History Past Medical History?: Yes Past Family History: Reviewed and not pertinent - Past Social History Smoking Status: Former Smoker Chewing Tobacco Use: No Cigar Use: No Alcohol: None Drugs: Denies Home Situation {Lives}: Retirement - CARDIAC Hx Cardiac Disorders: Yes Hx Atrial Fibrillation: Yes Hx Cardia Arrhythmia: Yes Hx Congestive Heart Failure: Yes Hx Hypertension: Yes Hx Pacemaker: Yes Hx Peripheral Edema: Yes - PULMONARY Hx Respiratory Disorders: Yes Hx Pneumonia: Yes (2006) - NEUROLOGICAL Hx Neurological Disorder: Yes Hx Syncope: Yes Other/Comment: COMATOSE 1 MONTH 2007 DUE TO RENAL FAILURE - HEENT Hx HEENT Problems: No - RENAL Hx Chronic Kidney Disease: Yes Type of Dialysis Access: L Arm AV fistula Date of Last Dialysis Treatment: 10/22/17 Hx Renal Failure: Yes - ENDOCRINE/METABOLIC Hx Endocrine Disorders: No - HEMATOLOGICAL/ONCOLOGICAL Hx Blood Disorders: Yes Hx Anemia: Yes - INTEGUMENTARY Hx Dermatological Problems: Yes Other/Comment: CHRONIC PRURITUS - MUSCULOSKELETAL/RHEUMATOLOGICAL Hx Musculoskeletal Disorders: Yes Hx Arthritis: Yes (OA, Gout, neck) Hx Falls: Yes - GASTROINTESTINAL Hx Gastrointestinal Disorders: Yes Other/Comment: ABD HERNIA HISTORY FEEDING TUBE INSERTION AND REMOVAL - GENITOURINARY/GYNECOLOGICAL Hx Genitourinary Disorders: No - PSYCHIATRIC Hx Psychophysiologic Disorder: No Hx Substance Use: No - SURGICAL HISTORY Hx Tonsillectomy: Yes - ANESTHESIA Hx Anesthesia: Yes Hx Anesthesia Reactions: No Hx Malignant Hyperthermia: No Meds Allergies/Adverse Reactions: Allergies Allergy/AdvReac Type Severity Reaction Status Date / Time vancomycin Allergy RASH Verified 10/22/17 17:54 олег inhibitors Allergy Mild ANAPHYLAXIS Uncoded 10/22/17 17:54 - Medications Medications: Current Medications Albumin Human (Albumin Human 25% (12.5 Gm/50 Ml)) 12.5 gm IV TTS PRN PRN Reason: hypotension Last Admin: 10/23/17 13:22 Dose: 12.5 gm Albuterol/Ipratropium (Duoneb 3 Mg/0.5 Mg (3 Ml) Ud) 3 ml INH RQ6 PRN PRN Reason: Shortness of Breath Last Admin: 10/23/17 01:25 Dose: 3 ml Amiodarone HCl (Cordarone) 100 mg PO DAILY [facility] Last Admin: 10/23/17 11:24 Dose: Not Given Amlodipine Besylate (Norvasc) 5 mg PO DAILY [facility] Last Admin: 10/23/17 10:13 Dose: 5 mg Aspirin (Ecotrin) 81 mg PO DAILY [facility] Last Admin: 10/23/17 10:13 Dose: 81 mg Epoetin Leroy (Procrit) 10,000 unit IV TTS [facility] Stop: 11/01/17 10:01 Last Admin: 10/23/17 13:52 Dose: 10,000 unit Furosemide (Lasix) 40 mg IVP DAILY [facility] Last Admin: 10/23/17 10:13 Dose: 40 mg Heparin Sodium (Porcine) (Heparin) 5,000 units SC Q12 [facility] Last Admin: 10/23/17 10:13 Dose: 5,000 units Ceftriaxone Sodium 1 gm/ (Dextrose) 100 mls @ 50 mls/30 min IVPB DAILY [facility] Last Admin: 10/23/17 11:25 Dose: Not Given Azithromycin 500 mg/ Sodium (Chloride) 250 mls @ 250 mls/hr IVPB DAILY [facility] Last Admin: 10/23/17 11:25 Dose: Not Given Lactic Acid (Lac-Hydrin 12% Lotion (225 G)) 0 gm TOP QID [facility] Last Admin: 10/23/17 14:07 Dose: Not Given Losartan Potassium (Cozaar) 50 mg PO DAILY [facility] Last Admin: 10/23/17 10:33 Dose: Not Given Pantoprazole Sodium (Protonix Ec Tab) 20 mg PO DAILY [facility] Pneumococcal Polyvalent Vaccine (Pneumovax 23 Vaccine) 0.5 ml IM .ONCE ONE Stop: 10/25/17 10:01 Sevelamer Carbonate (Renvela) 2,400 mg PO TID [facility] Last Admin: 10/23/17 14:07 Dose: Not Given Tramadol HCl (Ultram) 50 mg PO Q12 [facility] Last Admin: 10/23/17 10:11 Dose: 50 mg Vitamin B Complex/Vit C/Folic Acid (Nephro-Macho) 1 tab PO DAILY [facility] Last Admin: 10/23/17 10:13 Dose: 1 tab Results - Vital Signs Recent Vital Signs: Last Vital Signs Temp 97.3 F L 10/23/17 15:15 Pulse 65 10/23/17 15:15 Resp 20 10/23/17 15:15 BP 96/60 L 01/25/18 15:15 Pulse Ox 97 10/23/17 15:15 - Labs Result Diagrams: 10/23/17 11:58 10/23/17 11:58 Labs: Laboratory Results - last 24 hr 10/22/17 10/22/17 10/23/17 18:38 18:38 11:58 WBC 4.7 L 4.6 L RBC 2.44 L 2.21 L Hgb 8.2 L 7.4 L Hct 24.2 L 21.8 L MCV 99.2 H 98.6 H MCH 33.6 H 33.6 H MCHC 33.9 34.1 RDW 18.2 H 18.3 H Plt Count 301 293 MPV 7.7 7.5 Neut % (Auto) 64.7 Lymph % (Auto) 17.2 L [place] % (Auto) 15.9 H Eos % (Auto) 0.8 Baso % (Auto) 1.4 Neut # 3.0 Lymph # 0.8 L [place] # 0.7 Eos # 0.0 Baso # 0.1 Sodium 131 L Potassium 4.1 Chloride 94 L Carbon Dioxide 29 Anion Gap 13 BUN 46 H Creatinine 5.7 H Est GFR ( Amer) 12 Est GFR (Non-Af Amer) 10 Random Glucose 110 Calcium 8.4 L Magnesium 2.5 H % Saturation Total Bilirubin 0.6 AST 24 ALT 9 L D Alkaline Phosphatase 169 H D Troponin I < 0.0120 NT-Pro-B Natriuret Pep 59201 H Total Protein 8.6 H Albumin 3.1 L Globulin 5.4 H Albumin/Globulin Ratio 0.6 L 10/23/17 10/23/17 11:58 15:37 WBC RBC Hgb Hct MCV MCH MCHC RDW Plt Count MPV Neut % (Auto) Lymph % (Auto) [place] % (Auto) Eos % (Auto) Baso % (Auto) Neut # Lymph # [place] # Eos # Baso # Sodium 132 Potassium 5.1 Chloride 95 L Carbon Dioxide 27 Anion Gap 15 BUN 50 H Creatinine 6.5 H Est GFR ( Amer) 10 Est GFR (Non-Af Amer) 9 Random Glucose 103 Calcium 8.4 L Magnesium % Saturation 45 Total Bilirubin 0.5 AST 29 ALT 8 L Alkaline Phosphatase 175 H Troponin I NT-Pro-B Natriuret Pep Total Protein 8.3 Albumin 3.0 L Globulin 5.3 H Albumin/Globulin Ratio 0.6 L
[2017-10-23 17:27] LABS: % IRON SATURATION 45 (20-55); IRON 77 ug/dL (49-181); TOTAL IRON BINDING CAPACITY 172 ug/dL (250-450)
--- NOTE | 2017-10-23 22:35 | CP.PCM.CON ---
History of Present Illness - History of Present Illness History of Present Illness: The pt is a 67 year old man with a history of svt ablation, and cardiomyopathy. A nuclear stress test performed 1-2 years ago revealed normal perfusion. his last echo demonstrated moderately reduced LV EF. Pt now is admitted with heart failure. Initial ecg showed atiral fibrillation, but pt has been in nsr. Pt takes amiodarone low dose to maintain NSR and tfts have been normal as an outpatient. 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 Review of Systems - Review of Systems All systems: reviewed and no additional remarkable complaints except (depressed , chronic neck pain, and limited exercise capacity.) Past Patient History - Infectious Disease Hx of Infectious Diseases: None - Past Medical History & Family History Past Medical History?: Yes Past Family History: Reviewed and not pertinent - Past Social History Smoking Status: Former Smoker Chewing Tobacco Use: No Cigar Use: No Alcohol: None Drugs: Denies Home Situation {Lives}: Chcf - CARDIAC Hx Cardiac Disorders: Yes Hx Atrial Fibrillation: Yes Hx Cardia Arrhythmia: Yes Hx Congestive Heart Failure: Yes Hx Hypertension: Yes Hx Pacemaker: Yes Hx Peripheral Edema: Yes - PULMONARY Hx Respiratory Disorders: Yes Hx Pneumonia: Yes (2006) - NEUROLOGICAL Hx Neurological Disorder: Yes Hx Syncope: Yes Other/Comment: COMATOSE 1 MONTH 2008 DUE TO RENAL FAILURE - HEENT Hx HEENT Problems: No - RENAL Hx Chronic Kidney Disease: Yes Type of Dialysis Access: L Arm AV fistula Date of Last Dialysis Treatment: 10/22/17 Hx Renal Failure: Yes - ENDOCRINE/METABOLIC Hx Endocrine Disorders: No - HEMATOLOGICAL/ONCOLOGICAL Hx Blood Disorders: Yes Hx Anemia: Yes - INTEGUMENTARY Hx Dermatological Problems: Yes Other/Comment: CHRONIC PRURITUS - MUSCULOSKELETAL/RHEUMATOLOGICAL Hx Musculoskeletal Disorders: Yes Hx Arthritis: Yes (OA, Gout, neck) Hx Falls: Yes - GASTROINTESTINAL Hx Gastrointestinal Disorders: Yes Other/Comment: ABD HERNIA HISTORY FEEDING TUBE INSERTION AND REMOVAL - GENITOURINARY/GYNECOLOGICAL Hx Genitourinary Disorders: No - PSYCHIATRIC Hx Psychophysiologic Disorder: No Hx Substance Use: No - SURGICAL HISTORY Hx Tonsillectomy: Yes - ANESTHESIA Hx Anesthesia: Yes Hx Anesthesia Reactions: No Hx Malignant Hyperthermia: No Meds Allergies/Adverse Reactions: Allergies Allergy/AdvReac Type Severity Reaction Status Date / Time vancomycin Allergy RASH Verified 10/22/17 17:54 олег inhibitors Allergy Mild ANAPHYLAXIS Uncoded 10/22/17 17:54 - Medications Medications: Current Medications Albumin Human (Albumin Human 25% (12.5 Gm/50 Ml)) 12.5 gm IV TTS PRN PRN Reason: hypotension Last Admin: 10/23/17 13:22 Dose: 12.5 gm Albuterol/Ipratropium (Duoneb 3 Mg/0.5 Mg (3 Ml) Ud) 3 ml INH RQ6 PRN PRN Reason: Shortness of Breath Last Admin: 10/23/17 18:42 Dose: 3 ml Amiodarone HCl (Cordarone) 100 mg PO DAILY [facility] Last Admin: 10/23/17 11:24 Dose: Not Given Amlodipine Besylate (Norvasc) 5 mg PO DAILY [facility] Last Admin: 10/23/17 10:13 Dose: 5 mg Aspirin (Ecotrin) 81 mg PO DAILY [facility] Last Admin: 10/23/17 10:13 Dose: 81 mg Epoetin Leroy (Procrit) 10,000 unit IV TTS [facility] Stop: 11/01/17 10:01 Last Admin: 10/23/17 13:52 Dose: 10,000 unit Furosemide (Lasix) 40 mg IVP DAILY [facility] Last Admin: 10/23/17 10:13 Dose: 40 mg Heparin Sodium (Porcine) (Heparin) 5,000 units SC Q12 [facility] Last Admin: 10/23/17 22:20 Dose: 5,000 units Ceftriaxone Sodium 1 gm/ (Dextrose) 100 mls @ 50 mls/30 min IVPB DAILY [facility] Last Admin: 10/23/17 11:25 Dose: Not Given Azithromycin 500 mg/ Sodium (Chloride) 250 mls @ 250 mls/hr IVPB DAILY [facility] Last Admin: 10/23/17 11:25 Dose: Not Given Lactic Acid (Lac-Hydrin 12% Lotion (225 G)) 0 gm TOP QID [facility] Last Admin: 10/23/17 22:20 Dose: 1 applic Losartan Potassium (Cozaar) 50 mg PO DAILY [facility] Last Admin: 10/23/17 10:33 Dose: Not Given Pantoprazole Sodium (Protonix Ec Tab) 20 mg PO DAILY [facility] Pneumococcal Polyvalent Vaccine (Pneumovax 23 Vaccine) 0.5 ml IM .ONCE ONE Stop: 10/25/17 10:01 Sevelamer Carbonate (Renvela) 2,400 mg PO TID [facility] Last Admin: 10/23/17 17:32 Dose: 2,400 mg Tramadol HCl (Ultram) 50 mg PO Q12 [facility] Last Admin: 10/23/17 22:19 Dose: 50 mg Vitamin B Complex/Vit C/Folic Acid (Nephro-Macho) 1 tab PO DAILY [facility] Last Admin: 10/23/17 10:13 Dose: 1 tab Physical Exam - Constitutional Appears: Chronically Ill - Head Exam Head Exam: ATRAUMATIC - Eye Exam Eye Exam: EOMI - ENT Exam ENT Exam: Mucous Membranes Dry - Respiratory Exam Respiratory Exam: Clear to Auscultation Bilateral - Cardiovascular Exam Cardiovascular Exam: REGULAR RHYTHM - GI/Abdominal Exam GI & Abdominal Exam: Normal Bowel Sounds - Exam External exam: Swelling - Extremities Exam Extremities exam: Positive for: normal inspection - Back Exam Back exam: NORMAL INSPECTION - Neurological Exam Neurological exam: Normal Gait - Psychiatric Exam Psychiatric exam: Depressed - Skin Skin Exam: Normal Color Results - Vital Signs Recent Vital Signs: Last Vital Signs Temp 97.3 F L 10/23/17 15:15 Pulse 68 10/23/17 16:00 Resp 20 10/23/17 15:15 BP 96/60 L 10/23/17 15:15 Pulse Ox 97 10/23/17 15:15 - Labs Result Diagrams: 10/23/17 11:58 10/23/17 11:58 Labs: Laboratory Results - last 24 hr 10/23/17 10/23/17 10/23/17 11:58 11:58 15:32 WBC 4.6 L RBC 2.21 L Hgb 7.4 L Hct 21.8 L MCV 98.6 H MCH 33.6 H MCHC 34.1 RDW 18.3 H Plt Count 293 MPV 7.5 Sodium 132 Potassium 5.1 Chloride 95 L Carbon Dioxide 27 Anion Gap 15 BUN 50 H Creatinine 6.5 H Est GFR ( Amer) 10 Est GFR (Non-Af Amer) 9 Random Glucose 103 Calcium 8.4 L Iron 77 TIBC 172 L % Saturation 45 Ferritin Total Bilirubin 0.5 AST 29 ALT 8 L Alkaline Phosphatase 175 H Total Protein 8.3 Albumin 3.0 L Globulin 5.3 H Albumin/Globulin Ratio 0.6 L 10/23/17 10/23/17 15:32 15:37 WBC RBC Hgb Hct MCV MCH MCHC RDW Plt Count MPV Sodium Potassium Chloride Carbon Dioxide Anion Gap BUN Creatinine Est GFR ( Amer) Est GFR (Non-Af Amer) Random Glucose Calcium Iron TIBC % Saturation 45 Ferritin 2690.0 Total Bilirubin AST ALT Alkaline Phosphatase Total Protein Albumin Globulin Albumin/Globulin Ratio - EKG Data EKG Interpreted by: Myself (Atiral fib, RBBB) Assessment & Plan - Assessment and Plan (Free Text) Assessment: 1. Episodic atrial fibrillation: pt is debilitated, only on an asa 81. I will discuss anticoagulation with him. 2. Non ischemic cardiomyopathy. Repeat echo as LV ef, previously moderately reduced, may have deteriorated. Not CA channel stefano. Start beta stefano. Pt is on an arb. 3. Will ppm interrogated as he has not had it checked in 7 months. Will assess degree of afib burden by % of mode switching.
[2017-10-24] MEDS: Albuterol-Ipratrop 3 mg / 0.5 (3 ml) UD INH PRN (07:30)
[2017-10-24 08:27] VITALS: TEMP 97.1; O2SAT 95
[2017-10-24 08:30] LABS: BASO # 0.1 K/uL (0.0-0.2); BASO % 1.4 % (0.0-2.0); EOS % 0.4 % (0.0-4.0); HEMOGLOBIN 7.7 g/dL (12.0-18.0); LYMPH # 1.3 K/uL (1.0-4.3); LYMPH % 19.3 % (20.0-40.0); MEAN CELL VOLUME 99.9 fL (80.0-94.0); MEAN CORPUSCULAR HEMOGLOBIN 33.7 pg (27.0-31.0); MEAN CORPUSCULAR HGB CONC 33.7 g/dL (33.0-37.0); MEAN PLATELET VOLUME 7.7 fL (7.2-11.7); MONO % 15.3 % (0.0-10.0); NEUT # 4.3 K/uL (1.8-7.0); NEUT % 63.6 % (50.0-75.0); NRBC % 0.2 % (0.0-2.0); RBC 2.29 Mil/uL (4.40-5.90); RED CELL DISTRIBUTION WIDTH 18.6 % (11.5-14.5); WHITE BLOOD COUNT 6.8 K/uL (4.8-10.8)
[2017-10-24] MEDS ORDERED: Albuterol-Ipratrop 3 mg / 0.5 (3 ml) UD INH PRN (08:46)
[2017-10-24 08:57] LABS: ALB/GLOB RATIO 0.6 (1.0-2.1); ALBUMIN 3.3 g/dL (3.5-5.0); CALCIUM 8.6 mg/dl (8.6-10.4)
[2017-10-24] MEDS ORDERED: Albuterol 0.083% Inhal Sol (2.5 mg/3 mL) UD INH PRN (09:17)
[2017-10-24] MEDS ORDERED: Pantoprazole 20 mg EC Tab PO SCH (10:00)
[2017-10-24] MEDS: Azithromycin 500 MG in Sodium Chloride 0.9% 250 ML IVPB SCH (10:36)
[2017-10-24] MEDS: Ammonium Lactate 12% Lotion (225 g) TOP SCH ×2 (11:00→14:15)
[2017-10-24] MEDS: Multivitamin Vitamin B Complex (Nephro-Vite) Tab PO SCH (11:15)
--- NOTE | 2017-10-24 13:23 | CP.PCM.PN ---
Subjective - Date & Time of Evaluation Date of Evaluation: 10/24/17 Time of Evaluation: 13:20 - Subjective Subjective: PGY [address] Arzola Pt seen and examined this morning. Pt underwent dialysis treatment yesterday and was short of breath even after the dialysis. This morning, pt states that he still has shortness of breath. Denies having any CP, abd pain, N/V/D/C, F/ C. 12 point ROS negative except for the above mentioned. Objective - Vital Signs/Intake and Output Vital Signs (last 24 hours): Temp Pulse Resp BP Pulse Ox 97.1 F L 70 18 142/89 95 10/24/17 08:26 10/24/17 08:26 10/24/17 08:26 10/24/17 11:15 10/24/17 08:26 Intake and Output: 10/24/17 10/24/17 06:59 18:59 Intake Total 200 Balance 200 - Medications Medications: Current Medications Albumin Human (Albumin Human 25% (12.5 Gm/50 Ml)) 12.5 gm IV TTS PRN PRN Reason: hypotension Last Admin: 10/23/17 13:22 Dose: 12.5 gm Albuterol Sulfate (Albuterol 0.083% Inhal Nori (2.5 Mg/3 Ml) Ud) 2.5 mg INH RQ3 PRN PRN Reason: Shortness of Breath Albuterol/Ipratropium (Duoneb 3 Mg/0.5 Mg (3 Ml) Ud) 3 ml INH RQ6 [facility] Amiodarone HCl (Cordarone) 100 mg PO DAILY [facility] Last Admin: 10/23/17 11:24 Dose: Not Given Aspirin (Ecotrin) 81 mg PO DAILY [facility] Last Admin: 10/24/17 11:15 Dose: 81 mg Carvedilol (Coreg) 6.25 mg PO BID [facility] Last Admin: 10/24/17 11:15 Dose: 6.25 mg Epoetin Leroy (Procrit) 10,000 unit IV TTS [facility] Stop: 11/01/17 10:01 Last Admin: 10/23/17 13:52 Dose: 10,000 unit Furosemide (Lasix) 40 mg IVP DAILY [facility] Last Admin: 10/24/17 11:15 Dose: 40 mg Heparin Sodium (Porcine) (Heparin) 5,000 units SC Q12 [facility] Last Admin: 10/24/17 11:25 Dose: 5,000 units Azithromycin 500 mg/ Sodium (Chloride) 250 mls @ 250 mls/hr IVPB DAILY [facility] Last Admin: 10/24/17 10:36 Dose: 250 mls/hr Ceftriaxone Sodium 1 gm/ (Sodium Chloride) 100 mls @ 200 mls/hr IVPB Q24H [facility] Last Admin: 10/24/17 12:41 Dose: 200 mls/hr Lactic Acid (Lac-Hydrin 12% Lotion (225 G)) 0 gm TOP QID [facility] Last Admin: 10/24/17 11:00 Dose: 1 applic Losartan Potassium (Cozaar) 50 mg PO DAILY [facility] Last Admin: 10/24/17 12:39 Dose: 50 mg Pantoprazole Sodium (Protonix Ec Tab) 20 mg PO DAILY [facility] Last Admin: 10/24/17 11:15 Dose: 20 mg Pneumococcal Polyvalent Vaccine (Pneumovax 23 Vaccine) 0.5 ml IM .ONCE ONE Stop: 10/25/17 10:01 Sevelamer Carbonate (Renvela) 2,400 mg PO TID [facility] Last Admin: 10/24/17 11:15 Dose: 2,400 mg Tramadol HCl (Ultram) 50 mg PO Q12 [facility] Last Admin: 10/24/17 11:20 Dose: 50 mg Vitamin B Complex/Vit C/Folic Acid (Nephro-Bobby) 1 tab PO DAILY [facility] Last Admin: 10/24/17 11:15 Dose: 1 tab - Labs Labs: 10/24/17 08:20 10/24/17 08:20 - Constitutional Appears: Non-toxic, No Acute Distress - Head Exam Head Exam: ATRAUMATIC - ENT Exam ENT Exam: Mucous Membranes Moist - Respiratory Exam Respiratory Exam: Clear to Ausculation Bilateral, Respiratory Distress. absent : Rales, Rhonchi, Wheezes - Cardiovascular Exam Cardiovascular Exam: REGULAR RHYTHM, +S1, +S2. absent: Gallop, Rubs, Murmur - GI/Abdominal Exam GI & Abdominal Exam: Soft, Normal Bowel Sounds. absent: Distended, Firm, Guarding, Rigid, Tenderness - Extremities Exam Extremities Exam: absent: Pedal Edema, Tenderness - Neurological Exam Neurological Exam: Alert, Awake, Oriented x3 - Psychiatric Exam Psychiatric exam: Normal Affect, Normal Mood - Skin Skin Exam: Dry, Warm. absent: Intact, Normal Color Assessment and Plan - Assessment and Plan (Free Text) Assessment: Pericardial effusion I spoke with cardiology, Dr. Banuelos. He reviewed echo and states that pt has significant pericardial effusion likely causing his symptoms of shortness of breath. He recommends transferring pt to [facility] today for pericardiocentesis. EMTALA form is filled out. Will await a bed and then transfer. Dr. Arzola is made aware of this. CHF exacerbation ProBNP on admission [id number] CXR showed increased effusion in lower lung lobe ECHO showed normal LV systolic function with LV concentric hypertrophy, severe tricuspid regurg with mild pulm HTN Currently on Lasixs 40 mg IVP Cardiology is consulted Pneumonia Continue Abx zithromax and rocephin Will check procal ESRD on HD Nephrology consulted Pt underwent dialysis yesterday. Next dialysis tomorrow Continue procrit 10,000unit TTS Continue renvela 2400mg PO TID Continue nephro-bobby 1 tab po qd Left upper extremity swelling 10/01/2017: Duplex is negative for DVT Will need to assess AV fistula patency. Vascular is consulted HTN Pt on coreg and cozaar at home. Continue lasixs Anemia of CKD procrit increased to 10,000unit TTS will continue to monitor Hx AV block and A. flutter AV block: AICD Aflutter: s/p cardioversion 2011 on amiodarone 100mg daily and aspirin Will need AICD interrogated Chronic Pain Continue Tramadol 50 mg PO Q12h Lower extremity hyperkeratosis Lac-hydrin lotion Wound care management ordered Prophylaxis Protonix Heparin PT/OT All orders and managements per Dr. Arzola
--- NOTE | 2017-10-24 13:57 | CP.PCM.PN ---
Subjective - Date & Time of Evaluation Date of Evaluation: 10/24/17 Time of Evaluation: 07:00 - Subjective Subjective: The patient seen and examined Still complaining of shortness of breath denies chest pain Denies fever chills Status post hemodialysis yesterday Objective - Vital Signs/Intake and Output Vital Signs (last 24 hours): Temp Pulse Resp BP Pulse Ox 97.1 F L 70 18 142/89 95 10/24/17 08:26 10/24/17 08:26 10/24/17 08:26 10/24/17 11:15 10/24/17 08:26 Intake and Output: 10/24/17 10/24/17 06:59 18:59 Intake Total 200 Balance 200 - Medications Medications: Current Medications Albumin Human (Albumin Human 25% (12.5 Gm/50 Ml)) 12.5 gm IV TTS PRN PRN Reason: hypotension Last Admin: 10/23/17 13:22 Dose: 12.5 gm Albuterol Sulfate (Albuterol 0.083% Inhal Nori (2.5 Mg/3 Ml) Ud) 2.5 mg INH RQ3 PRN PRN Reason: Shortness of Breath Albuterol/Ipratropium (Duoneb 3 Mg/0.5 Mg (3 Ml) Ud) 3 ml INH RQ6 [facility] Amiodarone HCl (Cordarone) 100 mg PO DAILY [facility] Last Admin: 10/23/17 11:24 Dose: Not Given Aspirin (Ecotrin) 81 mg PO DAILY [facility] Last Admin: 10/24/17 11:15 Dose: 81 mg Carvedilol (Coreg) 6.25 mg PO BID [facility] Last Admin: 10/24/17 11:15 Dose: 6.25 mg Epoetin Leroy (Procrit) 10,000 unit IV TTS [facility] Stop: 11/01/17 10:01 Last Admin: 10/23/17 13:52 Dose: 10,000 unit Furosemide (Lasix) 40 mg IVP DAILY [facility] Last Admin: 10/24/17 11:15 Dose: 40 mg Heparin Sodium (Porcine) (Heparin) 5,000 units SC Q12 [facility] Last Admin: 10/24/17 11:25 Dose: 5,000 units Azithromycin 500 mg/ Sodium (Chloride) 250 mls @ 250 mls/hr IVPB DAILY [facility] Last Admin: 10/24/17 10:36 Dose: 250 mls/hr Ceftriaxone Sodium 1 gm/ (Sodium Chloride) 100 mls @ 200 mls/hr IVPB Q24H [facility] Last Admin: 10/24/17 12:41 Dose: 200 mls/hr Lactic Acid (Lac-Hydrin 12% Lotion (225 G)) 0 gm TOP QID [facility] Last Admin: 10/24/17 11:00 Dose: 1 applic Losartan Potassium (Cozaar) 50 mg PO DAILY [facility] Last Admin: 10/24/17 12:39 Dose: 50 mg Pantoprazole Sodium (Protonix Ec Tab) 20 mg PO DAILY [facility] Last Admin: 10/24/17 11:15 Dose: 20 mg Pneumococcal Polyvalent Vaccine (Pneumovax 23 Vaccine) 0.5 ml IM .ONCE ONE Stop: 10/25/17 10:01 Sevelamer Carbonate (Renvela) 2,400 mg PO TID [facility] Last Admin: 10/24/17 11:15 Dose: 2,400 mg Tramadol HCl (Ultram) 50 mg PO Q12 [facility] Last Admin: 10/24/17 11:20 Dose: 50 mg Vitamin B Complex/Vit C/Folic Acid (Nephro-Macho) 1 tab PO DAILY [facility] Last Admin: 10/24/17 11:15 Dose: 1 tab - Labs Labs: 10/24/17 08:20 10/24/17 08:20 - Head Exam Head Exam: ATRAUMATIC, NORMOCEPHALIC - ENT Exam ENT Exam: Mucous Membranes Moist - Neck Exam Neck Exam: Normal Inspection - Respiratory Exam Respiratory Exam: Decreased Breath Sounds - GI/Abdominal Exam GI & Abdominal Exam: Soft, Normal Bowel Sounds Assessment and Plan (1) CHF (congestive heart failure) Assessment & Plan: dyspnea most likely due to pulmonary edema Underlying pneumonia cannot be ruled out Continue antibiotics Continue hemodialysis The patient seen by cardiolo Followup cardiology recommendatio Status: Chronic (2) ESRD needing dialysis Status: Chronic
[2017-10-24] MEDS ORDERED: Albuterol-Ipratrop 3 mg / 0.5 (3 ml) UD INH SCH (14:00)
[2017-10-24] MEDS ORDERED: Dextrose 50% VIAL Inj (50 ml) IV ONE ×2 (14:41→15:06)
[2017-10-24] MEDS ORDERED: Dextrose 50% SYRINGE Inj (50 ml) IV STA (14:41)
[2017-10-24 14:58] LABS: ARTERIAL BLOOD GAS O2 SAT 99.3 % (95-98); ARTERIAL BLOOD GAS PCO2 42 mm/Hg (35-45); ARTERIAL BLOOD GAS PH 7.17 (7.35-7.45); ARTERIAL BLOOD GAS PO2 102 mm/Hg (80-100); ARTERIAL BLOOD GAS TCO2 16.6 mmol/L (22-28)
--- NOTE | 2017-10-24 15:10 | CP.PCM.PN ---
Subjective - Date & Time of Evaluation Date of Evaluation: 10/24/17 Time of Evaluation: 15:07 - Subjective Subjective: s/p cardiac arrest- required CPR Now on dopamine 5 mcg/kg Despite protest pt agreed to dialysis 10/23- 2500ml fluid remoived last PM Now pt more acidotic hyperkalemic post arrest echo report showed moderate- large pericardial effusion as per cardio- will need drainage Now being sent to ICU Hg noted to be much lower Objective - Vital Signs/Intake and Output Vital Signs (last 24 hours): Temp Pulse Resp BP Pulse Ox 97.1 F L 70 18 142/89 95 10/24/17 08:26 10/24/17 08:26 10/24/17 08:26 10/24/17 11:15 10/24/17 08:26 Intake and Output: 10/24/17 10/24/17 06:59 18:59 Intake Total 200 Balance 200 - Medications Medications: Current Medications Albumin Human (Albumin Human 25% (12.5 Gm/50 Ml)) 12.5 gm IV TTS PRN PRN Reason: hypotension Last Admin: 10/23/17 13:22 Dose: 12.5 gm Albuterol Sulfate (Albuterol 0.083% Inhal Nori (2.5 Mg/3 Ml) Ud) 2.5 mg INH RQ3 PRN PRN Reason: Shortness of Breath Albuterol/Ipratropium (Duoneb 3 Mg/0.5 Mg (3 Ml) Ud) 3 ml INH RQ6 [facility] Amiodarone HCl (Cordarone) 100 mg PO DAILY [facility] Last Admin: 10/23/17 11:24 Dose: Not Given Aspirin (Ecotrin) 81 mg PO DAILY [facility] Last Admin: 10/24/17 11:15 Dose: 81 mg Carvedilol (Coreg) 6.25 mg PO BID [facility] Last Admin: 10/24/17 11:15 Dose: 6.25 mg Epoetin Leroy (Procrit) 10,000 unit IV TTS [facility] Stop: 11/01/17 10:01 Last Admin: 10/23/17 13:52 Dose: 10,000 unit Furosemide (Lasix) 40 mg IVP DAILY [facility] Last Admin: 10/24/17 11:15 Dose: 40 mg Heparin Sodium (Porcine) (Heparin) 5,000 units SC Q12 [facility] Last Admin: 10/24/17 11:25 Dose: 5,000 units Azithromycin 500 mg/ Sodium (Chloride) 250 mls @ 250 mls/hr IVPB DAILY [facility] Last Admin: 10/24/17 10:36 Dose: 250 mls/hr Ceftriaxone Sodium 1 gm/ (Sodium Chloride) 100 mls @ 200 mls/hr IVPB Q24H [facility] Last Admin: 10/24/17 12:41 Dose: 200 mls/hr Lactic Acid (Lac-Hydrin 12% Lotion (225 G)) 0 gm TOP QID [facility] Last Admin: 10/24/17 14:15 Dose: 1 applic Losartan Potassium (Cozaar) 50 mg PO DAILY [facility] Last Admin: 10/24/17 12:39 Dose: 50 mg Pantoprazole Sodium (Protonix Ec Tab) 20 mg PO DAILY [facility] Last Admin: 10/24/17 11:15 Dose: 20 mg Pneumococcal Polyvalent Vaccine (Pneumovax 23 Vaccine) 0.5 ml IM .ONCE ONE Stop: 10/25/17 10:01 Sevelamer Carbonate (Renvela) 2,400 mg PO TID [facility] Last Admin: 10/24/17 14:13 Dose: 2,400 mg Tramadol HCl (Ultram) 50 mg PO Q12 [facility] Last Admin: 10/24/17 11:20 Dose: 50 mg Vitamin B Complex/Vit C/Folic Acid (Nephro-Macho) 1 tab PO DAILY [facility] Last Admin: 10/24/17 11:15 Dose: 1 tab - Labs Labs: 10/24/17 08:20 10/24/17 08:20 - Constitutional Appears: Toxic, In Acute Distress - Head Exam Head Exam: ATRAUMATIC, NORMAL INSPECTION - Neck Exam Neck Exam: Normal Inspection. absent: Tenderness - Respiratory Exam Respiratory Exam: Rhonchi, Respiratory Distress - Cardiovascular Exam Cardiovascular Exam: REGULAR RHYTHM, +S1 - GI/Abdominal Exam GI & Abdominal Exam: Soft. absent: Tenderness - Extremities Exam Extremities Exam: Normal Inspection. absent: Tenderness - Neurological Exam Neurological Exam: Altered, Motor Sensory Deficit - Skin Skin Exam: Dry, Warm Assessment and Plan (1) Cervical myelocele Status: Acute (2) ESRD needing dialysis Status: Chronic (3) Pericardial effusion Status: Acute (4) Cardiac arrest due to underlying cardiac condition Status: Acute (5) CHF (congestive heart failure) Status: Chronic - Assessment and Plan (Free Text) Plan: Transfer to ICU Will need dialysis when BP stabilizes Daily dialysis Eventual pericardial drainage ICU/ cardiac teams to evaluate pt
[2017-10-24] MEDS ORDERED: Sodium Bicarbonate (8.4%) 50 Meq Syringe IVP ONE (15:22)
[2017-10-24] MEDS ORDERED: Sodium Chloride 0.9% 1,000 ML IV ONE (15:23)
--- NOTE | 2017-10-24 15:24 | CARD ---
APPROVED REPORT EXAM: Two-dimensional and M-mode echocardiogram with Doppler and color Doppler. Other Information Quality : GoodRhythm : INDICATION Abnormal EKG/Arrhythmia Pericardial Effusion Dyspnea Pleural Effusion Chest Pain Congestive Heart Failure Palpitations ESRD ON RD RISK FACTORS Hypertension 2D DIMENSIONS IVSd1.6 (0.7-1.1cm)LVDd3.6 (3.9-5.9cm) PWd2.2 (0.7-1.1cm)IVSs1.6 (0.8-1.2cm) LVDs3.3 (2.5-4.0cm)FS (%) 8.7 % PWs1.9 (0.8-1.2cm)LVEF (%)55.0 (>50%) M-Mode DIMENSIONS RVDd2.13 (2.1-3.2cm)Left Atrium (MM)4.45 (2.5-4.0cm) IVSd1.22 (0.7-1.1cm)Aortic Root2.84 (2.2-3.7cm) LVDd2.41 (4.0-5.6cm)Aortic Cusp Exc.1.52 (1.5-2.0cm) PWd3.50 (0.7-1.1cm)FS (%) 62 % LVDs3.92 (2.0-3.8cm)LVEF (%)55 (>50%) Mitral Valve MV E Xfscovaj14.0cm/sMV A Hyhyxtta81.4cm/sE/A ratio1.0 TDI E/Lateral E'0.0E/Medial E'0.0 Tricuspid Valve TR Peak [id number]/sTR Peak [id number] LEFT VENTRICLE The left ventricle is normal size. There is moderate concentric left ventricular hypertrophy. Left ventricle systolic function is moderately impaired. The Ejection Fraction is 35-40%. There is global hypokinesis of the left ventricle. The left ventricular diastolic function is normal. RIGHT VENTRICLE The right ventricle is normal size. The right ventricle is mildly hypertrophied. The right ventricular systolic function is normal. There is a catheter in the right ventricle. There is slight diastolic collapse of the RV free wall noted consistent with cardiac tamponade. Please correlate clinically. ATRIA The left atrium is mildly dilated. The right atrium is mildly dilated. The interatrial septum is intact with no evidence for an atrial septal defect. AORTIC VALVE The aortic valve is normal in structure. No aortic regurgitation is present. There is no aortic valvular stenosis. There is no aortic valvular vegetation. MITRAL VALVE The mitral valve is normal in structure. There is no evidence of mitral valve prolapse. There is no mitral valve stenosis. Mitral regurgitation is mild. TRICUSPID VALVE The tricuspid valve is normal in structure. There is mild to moderate tricuspid regurgitation. Right ventricular systolic pressure is estimated at 40-50 mmHg. There is moderate pulmonary hypertension. PULMONIC VALVE The pulmonic valve is not well visualized. There is no pulmonic valvular regurgitation. GREAT VESSELS The aortic root is normal in size. PERICARDIAL EFFUSION There is a large circumferential pericardial effusion. There is an evidence of diastolic compression of the right ventricle pericardial effusion. There are echocardiographic indications for cardiac tamponade. <Conclusion> Left ventricle systolic function is moderately impaired. The Ejection Fraction is 35-40%. Hypertensive heart disease. No aortic regurgitation is present. Mitral regurgitation is mild. There is mild to moderate tricuspid regurgitation. There is moderate pulmonary hypertension. There is no pulmonic valvular regurgitation. There is a large circumferential pericardial effusion. There is an evidence of diastolic compression of the right ventricle due to large pericardial effusion. There are echocardiographic indications for cardiac tamponade.
[2017-10-24] MEDS ORDERED: Norepinephrine 4 MG in Dextrose 5% In Water 246 ML IV PRN (15:29)
--- NOTE | 2017-10-24 15:40 | PCM.RRT ---
<Kathryn Romero - Last Filed: 10/24/17 17:57> MEDIA PRODUCER Nurses Assessment - Situation Date: 10/24/17 Time MEDIA PRODUCER was called: 14:34 MEDIA PRODUCER Location:: Med/Surg MEDIA PRODUCER Reason for Call: Change in Mental Status MEDIA PRODUCER Called By: RN - IV IV Inserted during MEDIA PRODUCER?: No - Respiratory MEDIA PRODUCER Delivery Method: Intubated Was the Patient Intubated?: Yes - Medication Medications Administered During MEDIA PRODUCER: Epinephrine x 3. Sodium bicarbonate. Calcium gluconate. D50 amp x 2 - Diagnostic Test Ordered EKG: No Chest X-Ray: No CT Scan: No - Stat Labs Ordered MEDIA PRODUCER Stat Labs Ordered: ABG CPR started during MEDIA PRODUCER?: Yes - Vital Signs Vital Signs: BP was 80/55. - Neurological Status Other (Please specify): Patinet became unresponsive - Constitutional Appears: Toxic - Cardiovascular Exam Cardiovascular Exam: REGULAR RHYTHM Plan - Assessment of Findings&Treatment Plan Rapid response was called for patient due to hypotension. Patient then became unresponsive. Rapid response called at 14:34. Vital signs were checked and blood sugar was checked. Blood sugar was noted to be less than 20. Amp of D50 given. Patient then became pulseless. Sudhakar Law called at this time (14:42). ACLS protocol initiated. Patient intubated by Dr. Presley Arzola. 3 rounds of epi given, bicarb given, calcium gluconate given and another AMP of D50 give. Patient ROSC. ABG shock panel ordered. Patient was transferred to ICU. Patient started on dobutamine drip. While in ICU, during an attempt to put femoral central line patient became pulseless. Sudhakar law was called again. ACLS protocol was initiated again. Patient started on bicarb drip, and epinephrine drip. Pericardiocentesis was attempted with help of echo by Dr. Gary and Dr. Arzola. However, only minimal fluid was seen on the echo and no fluid removed. Patient had ROSC with very faint pulse. At this point a subclavian line was attempted for pacing. However, pt became pulseless at this point. ACLS was stopped at 16:24 pm and pt was pronounced . PMD, Dr. Arzola notified. Appeals Court Associate Justice notified. Family attempted to be notified but no one responding to call. <Grey Cat - Last Filed: 10/24/17 18:05> Attending/Attestation - Attestation I have personally seen and examined this patient.: Yes I have fully participated in the care of the patient.: Yes I have reviewed all pertinent clinical information, including history, physical exam and plan: Yes Notes (Text): 10/24/17 18:03 Medical hospitalist: Patient was seen and examined by me. Patient was altermental status. The RN was concerned for siezure. An acchuck was aquired and showed < 20 and an amp of D50 was immediately given. Shortly thereafter it was noted his breathing stopped and also difficult to aquire a pulse. Sudhakar Law was then called and he had chest compression, intubation, administration of epi and bicarb were given. He was moved to the ICU for further monitoring. Grey Cat
[2017-10-24] MEDS ORDERED: CALCIUM CHLORIDE 100 MG/ML VIAL IV ONE (15:42)
[2017-10-24] MEDS ORDERED: Dextrose 50% SYRINGE Inj (50 ml) ONE (15:42)
[2017-10-24] MEDS ORDERED: D5W ONE (15:42)
[2017-10-24] MEDS ORDERED: DOBUTAMINE 500 MG/250 ML ONE (15:42)
[2017-10-24] MEDS ORDERED: EPINEPHrine- 1 MG in Sodium Chloride 0.9% 250 ML IV PRN (15:50)
[2017-10-24] MEDS ORDERED: DOBUTamine 500mg/250ml D5W 500 MG/250 ML BAG ONE (15:57)
[2017-10-24 18:44] VITALS: RESP 20
--- NOTE | 2017-10-24 20:15 | CP.PCM.PRO ---
Pronouncement of Note - Clinical Findings Physical Exam: No Response Verbal/Painful Stimuli, Absent Peripheral Pulses{ Carotid & Femoral}, Absent Heart & Breath Sounds, No Pupillary Light Reflex, No Corneal Reflex, Pupils Fixed & Dilated, Absence of Vital Signs - Pronouncement Time Time of Pronouncement of : 16:24 - Notifications Pronouncement Notifications: Family Notified, Atending Notified Network Control Operators Supervisor Notified: No - Autopsy Autopsy Requested: No - [place] [id number]
[2017-10-24 20:18] VITALS: PULSE 42
--- NOTE | 2017-10-24 20:19 | PCM.PROC ---
Procedures Attestation:: I certify that I have explained the specified Operation(s) or Procedure(s), risks, benefits and reasonable alternatives to the Patient and/or other person responsible. The opportunity was given to ask questions and all questions answered - Arterial Line Right Femoral Aseptic technique was employed throughout the procedure: Hand Hygiene done prior to procedure, Full sterile barriers (mask, hair cover, sterile gown, sterile gloves), Full body sterile drape, Chloraprep Antiseptic: 2 minute prep for Femoral Time Out Performed: Yes Pt. placed on Pulse Ox Monitor: Yes Central Line Prep: Chlorhexidine-Alcohol Combination Local Anesthesia Used: Lidocaine 1% Ultrasound Used for Placement: No Gauge (Size): 20 gauge Technique Used: Guide Wire Technique Post procedure dressing: Clear vapor permeable Patient Tolerated Procedure: other (during code blue, cardiac arrest) Immediate Complications: none - Central Line Placement Left Femoral Triple Lumen Catheter Aseptic technique was employed throughout the procedure: Hand Hygiene done prior to procedure, Full sterile barriers (mask, hair cover, sterile gown, sterile gloves), Full body sterile drape, Chloraprep Antiseptic: 2 minute prep for Femoral CVP Time Out Performed: Yes Pt. Placed on Pulse Ox Monitor: Yes Central Line Prep: Chlorhexidine-Alcohol Combination Local Anesthesia Used: Lidocaine 1% Ultrasound Used for Placement: No Central Line Lumen Inserted: triple Central Line Length: 16 cm Post Procedure: Sutured in Place, Good Blood Return, All Ports Aspirated, Flushed, Capped, Sterile Dressing Applied Secured by: Suture Post Procedure X-Ray: No Patient Tolerated Procedure: Other (during code blue/cardiac arrest) Immediate Complications: None
[2017-10-24 20:21] VITALS: BP 60/25
[2017-10-24 20:36] LABS: MYCOPLASMA PNEUMONIAE IGM NEGATIVE (NEGATIVE)
[2017-10-25] MEDS ORDERED: Pneumococcal 23-Valent Vaccine IM ONE (10:00)
== END 2017-10-24 19:00 | DRG 208 ==
LOC: C.ER 17:36 → C.9E 20:54 → C.6T 21:56 → C.9I 10-24 15:02
PROVIDERS: ADMIT Internal Medicine Nephrology; ATTEND Internal Medicine Nephrology
PROC: 5A1D70Z Performance of Urinary Filtration, Intermittent, Less than 6 Hours Per Day (ICD-10-PCS; principal; 2017-10-23)
PROC: 5A1935Z Respiratory Ventilation, Less than 24 Consecutive Hours (ICD-10-PCS; 2017-10-24)
PROC: 0BH17EZ Insertion of Endotracheal Airway into Trachea, Via Natural or Artificial Opening (ICD-10-PCS; 2017-10-24)
DX: J18.9 Pneumonia, unspecified organism (principal); I46.2 Cardiac arrest due to underlying cardiac condition; I13.2 Hypertensive heart and chronic kidney disease with heart failure and with stage 5 chronic kidney disease, or end stage renal disease; E87.2 Acidosis; I27.20 Pulmonary hypertension, unspecified; J44.0 Chronic obstructive pulmonary disease with (acute) lower respiratory infection; E87.5 Hyperkalemia; I42.9 Cardiomyopathy, unspecified; I48.0 Paroxysmal atrial fibrillation; N18.6 End stage renal disease; Q05.5 Cervical spina bifida without hydrocephalus; I48.92 Unspecified atrial flutter; N25.81 Secondary hyperparathyroidism of renal origin; D63.1 Anemia in chronic kidney disease; I50.9 Heart failure, unspecified; G89.29 Other chronic pain; I25.10 Atherosclerotic heart disease of native coronary artery without angina pectoris; Z87.891 Personal history of nicotine dependence; Z95.810 Presence of automatic (implantable) cardiac defibrillator; Z99.2 Dependence on renal dialysis